=== PATIENT | female | born 1935 | race Caucasian/White ===

== ENCOUNTER → 2016-06-20 | Outpatient (CLI) | payer MEDICARE ==
[~2016-06-20] MED LIST: /WARF25TA OR; ASPIRIN PO; BONIVA PO; CALCTAB93 PO; COQ10 PO; GLAUCOMA EYE DROP OU; GLUCOSAMINE PO; LISIPOW PO; METOPROLOL PO; MILKSUS OR; MULTLIQ7 PO; PERC5TAB8 OR; PRIN5TAB OR; SENO8.6T5 OR; SIMVPOW2 PO; [UNRECOGNIZED DRUG - OTHER] OU
[2016-06-20 19:31] LABS: FREE T4 1.05 NG/DL (0.76-1.46)
== END ==
LOC: M LRY 11:57
PROVIDERS: ATTEND Nurse Practitioner Family
DX: R81 Glycosuria (principal); Z79.899 Other long term (current) drug therapy; I10 Essential (primary) hypertension

== ENCOUNTER → 2016-10-16 | Outpatient (CLI) | payer MEDICARE ==
[2016-10-16 17:24] LABS: ALBUMIN 3.5 GM/DL (3.2-5.2); ALKALINE PHOSPHATASE 81 U/L (45-117); ALT/SGPT 20 U/L (12-78); ANION GAP 5 MEQ/L (8-16); AST/SGOT 19 U/L (15-37); BILIRUBIN,TOTAL 0.4 MG/DL (0.2-1.0); BLOOD UREA NITROGEN 24 MG/DL (7-18); CALCIUM LEVEL 8.8 MG/DL (8.8-10.2); CARBON DIOXIDE LEVEL 30 MEQ/L (21-32); CHLORIDE LEVEL 109 MEQ/L (98-107); CHOLESTEROL LEVEL 163 MG/DL (<200); CREATININE FOR GFR 0.77 MG/DL (0.55-1.02); GLOMERULAR FILTRATION RATE > 60.0 (>32); GLUCOSE, FASTING 109 MG/DL (83-110); POTASSIUM SERUM 4.3 MEQ/L (3.5-5.1); SODIUM LEVEL 144 MEQ/L (136-145); TOTAL PROTEIN 6.2 GM/DL (6.4-8.2); TRIGLYCERIDES LEVEL 70 MG/DL (<150)
== END ==
LOC: M LRY 10:51
PROVIDERS: ATTEND Nurse Practitioner Family
DX: E78.4 Other hyperlipidemia (principal); I10 Essential (primary) hypertension

== ENCOUNTER → 2016-11-05 | Day surgery (SDC) | payer MEDICARE ==
[~2016-11-05] VITALS: Ht 165.1 cm; Wt 57.2 kg
[~2016-11-05] MED LIST changes: +ACETAMINOPHEN 325 MG TAB PO PRN; +ACETYLCHOLINE OPHTH SOLN 1% 2ML (MIOCHOL-E) As Ordered ONE; +ASPI1TAB PO; +AcetaZOLAMIDE 500 MG ER CAP PO ONE; +BSS with VANC/TOB/EPI for EYE CASES IR ONE; +CALC500T49 PO; +CEFUROXIME 1MG/0.1ML INTRACAMERAL INJ As Ordered ONE; +CYCLOPENTOLATE 2% OPHTH SOLN 2ML BTL OD ONE; +HEALON DUET (HEALON 10MG/ML 0.55ML & HEALON ENDOCOAT 30MG/ML 0.85ML) As Ordered ONE; +KETOROLAC 0.5% OPHTH SOLN OD ONE; +LIDOCAINE 1% SDV 5 ML VIAL As Ordered ONE; +LIDOCAINE 4% INJ 5 ML AMP OU ONE; +LISI-542 PO; +LR 500 ML IV SCH; +METO-346 PO; +MIDAZOLAM INJ 2 MG/2 ML VIAL (J2250) As Ordered ONE; +MULT1TAB10 PO; +OFLOXACIN 0.3 % (OCUFLOX) OPTH SOL 5ML OD ONE; +PHENYLEPHRINE 2.5% OPHTH SOL 2ML OD ONE; +POVIDONE-IODINE 5% OPHTH PREP SOL 30ML As Ordered ONE; +PROPARACAINE 0.5% OPHTH SOL 15ML OD PRN; +SIMV20TA2 PO; +TRIMETHOBENZAMIDE 300 MG CAP PO PRN; +TROPICAMIDE 1% OPHTH SOLN 2ML OD ONE; +fentaNYL 100 MCG/2 ML INJECTION (J3010) As Ordered ONE
[2016-11-05 11:20] VITALS: BP 162/90
--- NOTE | 2016-11-06 13:35 | RO ---
DATE OF PROCEDURE: 11/05/2016 PREPROCEDURE DIAGNOSIS: Cataract right eye and glaucoma right eye. POSTPROCEDURE DIAGNOSIS: Glaucoma and cataract right eye. PROCEDURE: Phacoemulsification with intraocular lens implantation of PCB00 power 26 diopter and endocyclophotocoagulation right eye and also placement of the Glaukos iStent. SURGEON: Megan Walsh MD [employer]IATION TACTICAL READINESS OFFICER: None. ANESTHESIA: COMPLICATIONS: None. DESCRIPTION OF PROCEDURE: The patient was first brought to the operating room and laid in supine position. The right eye was prepped and draped in a sterile fashion for opthalmic surgery and a lid speculum was placed. Side port incision was made and EndoCoat was injected into the anterior chamber. Temporal clear corneal incision was then made with a 2.5 mm Keratome followed by capsulorrhexis and hydrodissection. Phacoemulsification was then carried out in divide and conquer method followed by aspiration of the cortex with the irrigation and aspiration cannula. Healon was then placed into the capsular bag and intraocular lens inserted. Healon was then placed in the ciliary sulcus and under the guidance of the TV monitor with the help of the EndoProbe, endocyclophotocoagulation was done at over 280 degrees at 0.20 mV. Good results were noted by shrinking of the ciliary processes. After this, Healon was then placed into the anterior chamber to visualize the inferonasal trabecular mesh work and with the patient's head turned away and under high mag with the help of the Gonio lens, iStent was placed in the inferonasal quadrant. It was very hard for the patient to hold still so we had to attempt a second iStent after the first one was noted to be loose. Excess viscoelastic was then aspirated. Wound was hydrated. Lid speculum removed and patient returned to recovery room in stable condition.
== END | disposition home or self-care (01) ==
LOC: M SDC 07:51
PROVIDERS: ATTEND Ophthalmology
DX: H25.9 Unspecified age-related cataract (principal); H40.9 Unspecified glaucoma; I25.10 Atherosclerotic heart disease of native coronary artery without angina pectoris; I25.2 Old myocardial infarction; I10 Essential (primary) hypertension; E78.4 Other hyperlipidemia; M19.90 Unspecified osteoarthritis, unspecified site; R06.83 Snoring; M81.0 Age-related osteoporosis without current pathological fracture; Z95.5 Presence of coronary angioplasty implant and graft; Z79.899 Other long term (current) drug therapy; Z79.82 Long term (current) use of aspirin
CPT/HCPCS: 66183; 66711; 66984; C1783; J2250; J3010; V2632

== ENCOUNTER → 2016-12-05 | Outpatient (REF) | payer MEDICARE ==
[~2016-12-05] MED LIST changes: -ACETAMINOPHEN 325 MG TAB PO PRN; -ACETYLCHOLINE OPHTH SOLN 1% 2ML (MIOCHOL-E) As Ordered ONE; -AcetaZOLAMIDE 500 MG ER CAP PO ONE; -BSS with VANC/TOB/EPI for EYE CASES IR ONE; -CEFUROXIME 1MG/0.1ML INTRACAMERAL INJ As Ordered ONE; +CHEW500C2 PO; +CO Q100C PO; -CYCLOPENTOLATE 2% OPHTH SOLN 2ML BTL OD ONE; -HEALON DUET (HEALON 10MG/ML 0.55ML & HEALON ENDOCOAT 30MG/ML 0.85ML) As Ordered ONE; -KETOROLAC 0.5% OPHTH SOLN OD ONE; -LIDOCAINE 1% SDV 5 ML VIAL As Ordered ONE; -LIDOCAINE 4% INJ 5 ML AMP OU ONE; +LOVE1INJ SC; -LR 500 ML IV SCH; +METO25TA4 PO; -MIDAZOLAM INJ 2 MG/2 ML VIAL (J2250) As Ordered ONE; +MILKSUS PO; -OFLOXACIN 0.3 % (OCUFLOX) OPTH SOL 5ML OD ONE; +PEG1POW PO; +PERC5TAB12 PO; -PHENYLEPHRINE 2.5% OPHTH SOL 2ML OD ONE; -POVIDONE-IODINE 5% OPHTH PREP SOL 30ML As Ordered ONE; -PROPARACAINE 0.5% OPHTH SOL 15ML OD PRN; +SENO8.6T10 PO; +SIMB1SUS OU; +TIMO0.5S29 OU; +TRAV04OPD OU; -TRIMETHOBENZAMIDE 300 MG CAP PO PRN; -TROPICAMIDE 1% OPHTH SOLN 2ML OD ONE; +VITACHTA PO; -fentaNYL 100 MCG/2 ML INJECTION (J3010) As Ordered ONE
[2016-12-05 19:45] LABS: BASO % 0.6 % (0.0-1.0); EOS # 0.1 K/mm3 (0.0-0.50); EOS % 2.3 % (0.0-3.0); LARGE UNSTAINED CELL # 0.1 K/mm3 (0.0-0.4); LARGE UNSTAINED CELL % 1.7 % (0.0-4.0); LYMPH # 1.5 K/mm3 (1.5-4.5); LYMPH % 22.2 % (24.0-44.0); MEAN CORPUSCULAR HEMOGLOBIN 30.2 pg (27.0-33.0); MEAN CORPUSCULAR VOLUME 91.3 fl (80.0-96.0); MONO # 0.4 K/mm3 (0.0-0.8); MONO % 5.8 % (0.0-5.0); NEUTROPHILS # 4.2 K/mm3 (1.8-7.7); NEUTROPHILS % 67.4 % (36.0-66.0); PLATELET COUNT, AUTOMATED 241 k/mm3 (150-450); RED CELL DISTRIBUTION WIDTH 13.1 % (11.5-14.5); WHITE BLOOD COUNT 6.2 K/mm3 (4.0-10.0)
[2016-12-05 20:52] LABS: ERYTHROCYTE SEDIMENTATION RATE 11 mm/hr (0-30)
== END ==
LOC: M SFHCLERA 14:50
PROVIDERS: ATTEND Family Medicine
DX: R63.4 Abnormal weight loss (principal)

== ENCOUNTER → 2016-12-05 | Outpatient (CLI) | payer MEDICARE ==
--- NOTE | 2016-12-05 15:41 | REP ---
PA and lateral chest: Comparisons are 03/14/2012 and 09/02/2011. There are are no masses or nodules. There are no infiltrates or effusions. Lung esteves are clear. Cardiac size is normal. There is demineralization. There is thoracic scoliosis convex right at the thoracolumbar junction. This is unchanged. No lytic, blastic or destructive skeletal changes are identified. The sharad and mediastinum are unremarkable. Impression: No change from the prior studies. There are no masses or nodules. No infiltrates or effusions. Demineralization and scoliosis are again identified. Signed by Hai Sood MD 12/05/2016 03:33 P
== END ==
LOC: M LRY 15:15
PROVIDERS: ATTEND Family Medicine
DX: M85.80 Other specified disorders of bone density and structure, unspecified site (principal); M41.24 Other idiopathic scoliosis, thoracic region; R63.4 Abnormal weight loss
CPT/HCPCS: 71020; 84443; 85025; 85652; 86140; G0463

== ENCOUNTER → 2016-12-07 | Outpatient (REF) | payer MEDICARE | LOC: M SFHCLERA 17:49 | PROVIDERS: ATTEND Family Medicine | DX: R63.4 Abnormal weight loss (principal); Z79.899 Other long term (current) drug therapy; R13.0 Aphagia ==

== ENCOUNTER → 2016-12-11 | Outpatient (CLI) | payer MEDICARE ==
[~2016-12-11] MED LIST changes: +E-Z-PAQUE 96% w/w SUSP 176GM BTL As Ordered ONE; +VARIBAR NECTAR 40% w/v 240ML SUSP BTL As Ordered ONE; +VARIBAR PUDDING 40% w/v 230ML TUBE As Ordered ONE
--- NOTE | 2016-12-11 14:55 | REP ---
COOKIE SWALLOW: The procedure was performed under the direct supervision of Dr. Stephenson. The procedure was performed with Mckenzie Mayorga from speech pathology present. 5 mL aliquots of thin and solid-consistency barium was administered. With thin-consistency barium, there is penetration. A detailed report of this examination will be provided by speech pathology. 1 minute and 50 seconds of fluoroscopy time was utilized for this procedure. Reviewed by GRADY Mota 12/11/2016 04:06 PEdited and Signed by Hai Stephenson MD 12/11/2016 05:42 P
== END ==
LOC: M ST 10:02
PROVIDERS: ATTEND Family Medicine
DX: R13.10 Dysphagia, unspecified (principal)
CPT/HCPCS: 74230; 92611; G8996; G8997

== ENCOUNTER 2017-01-05 19:09 | Inpatient (IN) | payer MEDICARE ==
[~2017-01-05] VITALS: Ht 162.6 cm; Wt 58.4 kg
[~2017-01-05 19:09] MED LIST changes: -CHEW500C2 PO; -CO Q100C PO; -LOVE1INJ SC; -METO25TA4 PO; -MILKSUS PO; -PEG1POW PO; -PERC5TAB12 PO; -SENO8.6T10 PO; -SIMB1SUS OU; -TIMO0.5S29 OU; -TRAV04OPD OU; -VITACHTA PO
[2017-01-05 19:53] LABS: BASO # 0.1 K/mm3 (0.0-0.2); BASO % 0.4 % (0.0-1.0); EOS # 0.1 K/mm3 (0.0-0.50); EOS % 0.8 % (0.0-3.0); LARGE UNSTAINED CELL # 0.1 K/mm3 (0.0-0.4); LARGE UNSTAINED CELL % 0.6 % (0.0-4.0); LYMPH # 0.9 K/mm3 (1.5-4.5); LYMPH % 6.5 % (24.0-44.0); MEAN CORPUSCULAR HEMOGLOBIN 29.8 pg (27.0-33.0); MEAN CORPUSCULAR HGB CONC 32.5 g/dl (32.0-36.5); MEAN CORPUSCULAR VOLUME 91.6 fl (80.0-96.0); MONO # 0.5 K/mm3 (0.0-0.8); MONO % 4.3 % (0.0-5.0); NEUTROPHILS # 11.2 K/mm3 (1.8-7.7); NEUTROPHILS % 87.5 % (36.0-66.0); PLATELET COUNT, AUTOMATED 183 k/mm3 (150-450); RED CELL DISTRIBUTION WIDTH 13.2 % (11.5-14.5); WHITE BLOOD COUNT 12.8 K/mm3 (4.0-10.0)
[2017-01-05 19:56] LABS: INR 0.99
[2017-01-05 20:22] LABS: ANION GAP 7 MEQ/L (8-16); BLOOD UREA NITROGEN 31 MG/DL (7-18); CALCIUM LEVEL 9.5 MG/DL (8.8-10.2); CARBON DIOXIDE LEVEL 27 MEQ/L (21-32); CHLORIDE LEVEL 110 MEQ/L (98-107); CREATININE FOR GFR 0.68 MG/DL (0.55-1.02); GLOMERULAR FILTRATION RATE > 60.0 (>32); GLUCOSE, FASTING 123 MG/DL (83-110); POTASSIUM SERUM 3.9 MEQ/L (3.5-5.1); SODIUM LEVEL 144 MEQ/L (136-145)
[2017-01-05] MEDS ORDERED: ONDANSETRON 4MG/2ML VIAL (J2405) IV ONE (20:30)
[2017-01-05] MEDS ORDERED: fentaNYL 100 MCG/2 ML INJECTION (J3010) IV ONE ×2 (20:30→21:15)
[2017-01-05] MEDS ORDERED: TIMO0.5S29 OU (21:06)
[2017-01-05] MEDS ORDERED: METO25TA4 PO (21:06)
[2017-01-05] MEDS ORDERED: CO Q100C PO (21:06)
[2017-01-05] MEDS ORDERED: TRAV04OPD OU (21:06)
[2017-01-05] MEDS ORDERED: SIMB1SUS OU (21:06)
[2017-01-05] MEDS ORDERED: CHEW500C2 PO (21:06)
[2017-01-05] MEDS ORDERED: VITACHTA PO (21:06)
[2017-01-05] MEDS ORDERED: ACETAMINOPHEN TAB 650MG DOSE (2X325MG) PO PRN (21:45)
--- NOTE | 2017-01-05 22:39 | HPE ---
DATE OF ADMISSION: 01/05/2017 Most of the history is obtained from the patient who is a good historian. CHIEF COMPLAINT: Mechanical fall and hip pain. HISTORY OF PRESENT ILLNESS: This is an 81-year-old female who states that apparently today at 2:30 p.m. she slipped while trying to hold onto a railing. The patient, after the fall, had significant pain in her hip, therefore came to the emergency room for further evaluation. The patient denies any loss of consciousness prior to the fall, denies any fainting, does remember the entire event, denies any chest pain, shortness of breath, or palpitations prior to the fall. She has never had any previous syncope in the past. The patient, upon arrival, was diagnosed with a hip fracture. The patient states she does have a history of coronary artery disease, last stenting done in 2011, this was after a myocardial infarction. The patient has two stents overall, is currently only on a baby aspirin, she denies any history of recent chest pain or dyspnea on exertion. The patient states she dances regularly without any difficulty. There is no previous history of congestive heart failure as far as her family knows as well. There is no previous history of arrhythmias. The patient's last surgery was in 2011 with general anesthesia. The patient denies any excessive bleeding at that time and did not have any complications from the anesthesia and did not require a prolonged intubation at that time. The patient does have a history of atrial fibrillation, she is status post ablation in the past, and prior to that was cardioverted multiple times. She is currently not on any anticoagulation for that. The patient denies any previous history of diabetes or kidney disease of any kind or any previous strokes. PAST MEDICAL HISTORY: Significant for coronary artery disease status post myocardial infarction (MA) and stenting times two, atrial fibrillation status post cardioversion and now ablation, currently not on any anticoagulation, hypertension, glaucoma, osteoarthritis. CURRENT MEDICATIONS: Include: - aspirin 81 mg daily - metoprolol 25 mg twice a day - lisinopril 5 mg daily - calcium carbonate 500 mg daily - multivitamin two tablets daily - simvastatin 20 mg nightly - coenzyme Q10 100 mg tablet daily - Simbrinza eye drops twice a day - Timolol eye drops 0.5% twice a day - Travatan eye drops nightly to both eyes ALLERGIES: No known drug allergies. SOCIAL HISTORY: The patient denies any previous history of tobacco, alcohol, or drug use. Currently retired. FAMILY HISTORY: Noncontributory for any coronary artery disease or diabetes. PREVIOUS SURGERIES: Include a total hysterectomy, bilateral total knee replacement, appendectomy, gallbladder resection, a breast biopsy in the past, and cataract surgery. REVIEW OF SYSTEMS: Other than the above mentioned, denies any other constitutional symptoms or any cardiac, pulmonary, digestive, endocrine, hematological, psychiatric, neurological, musculoskeletal, or dermatological disease. PHYSICAL EXAMINATION: Pulse is 71, blood pressure of 160/94, breathing at 28, afebrile. GENERAL APPEARANCE: 81-year-old, thin, white female, currently laying in bed in no apparent distress. PSYCHIATRIC EXAM: Alert and oriented times three with normal affect, pleasant. SKIN EXAM: Intact, warm, no obvious rashes noted. EYE EXAM: Pupils are equally round and reactive to light without icterus. OROPHARYNGEAL EXAM: No pharyngeal erythema, dentition in good condition. NECK EXAM: No thyromegaly, trachea midline, neck is supple. LYMPHATICS EXAM: No cervical or axillary lymphadenopathy. CARDIAC EXAM: Regular rate and rhythm. No rubs, murmurs or gallops. No jugular venous distention (JVD). No edema. RESPIRATORY EXAM: Clear to auscultation bilaterally with good effort. ABDOMINAL EXAM: Nondistended, nontender. No masses palpated. PERIPHERAL EXAM: No clubbing, cyanosis, or edema noted. LABORATORY DATA: The patient's white cell count is 12,000, hematocrit of 43, platelet count of 183, with an MCV of 91, RDW of 13. Chemistry is essentially normal except for an elevated BUN and creatinine of 31/0.68, with a calcium of 9.5. Coagulation profile is normal. The patient underwent a pelvic x-ray, which is personally reviewed as well, and shows a hip fracture. The patient has a chest x-ray as well, which is also personally reviewed, and shows no obvious effusions or infiltrates and slight hyperinflation. EKG is personally reviewed as well and shows normal sinus, normal axis, with left ventricular hypertrophy and no ST changes. ASSESSMENT: This is an 81-year-old female now presenting with hip fracture status post a mechanical fall. The patient is scheduled to probably undergo surgery in the morning. Anesthesia has requested cardiac evaluation prior to surgery. 1. Hip fracture: Will admit the patient to the medical/surgical unit at this time, the patient will be nothing by mouth after midnight, orthopedic consult has been obtained, complete blood count (CBC) and basic metabolic panel (BMP) will be ordered for the morning. a. Cardiac risk: The patient is moderate risk for a moderate risk procedure, at this time would recommend continuing metoprolol and holding aspirin, proceed as planned, cardiology evaluation in the morning. b. Pulmonary risk: The patient's pulmonary risk status at this time is low, would recommend incentive spirometry after surgery. c. DVT (deep venous thrombosis) risk: Proceed as per orthopedics. 2. Hypertension: At this time, will continue with metoprolol only, reinstitute other medications after surgery. 3. Previous atrial fibrillation: The patient has undergone ablation in the past and apparently has not had any issues. Will continue to monitor for atrial fibrillation. For deep venous thrombosis (DVT) prophylaxis, the patient will be on sequential compression device secondary to probable procedure in the morning and diet will be a cardiac diet at this time and then nothing by mouth after midnight.
[2017-01-06] VITALS (8 sets, daily range): BP systolic 102–156; BP diastolic 52–83
[2017-01-06] MEDS: PERCOCET 5MG/325MG TAB PO PRN ×4 (00:51→21:58)
[2017-01-06] MEDS: NS 1,000 ML IV SCH ×2 (00:52→08:26)
--- NOTE | 2017-01-06 07:31 | ECGEPIP ---
Stationary ECG Study [facility] - ED Test Date: 2017-01-05 Pat Name: RYLEE VICKERS Department: Room: [place] [address] Gender: F Obiee Lead Developer: sherly : 1935 Requested By: GIBRAN RAMIREZ Order Number: [id number] Reading MD: Humberto Richter Measurements Intervals [place] Rate: 85 P: 50 OR: 162 QRS: 44 QRSD: 110 T: 17 QT: 366 QTc: 437 Interpretive Statements SINUS RHYTHM MODERATE VOLTAGE CRITERIA FOR LVH, CONSIDER NORMAL VARIANT Electronically Signed On 01-06-2017 7:31:05 EDT by Humberto Richter
[2017-01-06 07:36] LABS: BASO % 0.6 % (0.0-1.0); EOS # 0.1 K/mm3 (0.0-0.50); EOS % 2.4 % (0.0-3.0); LARGE UNSTAINED CELL # 0.1 K/mm3 (0.0-0.4); LARGE UNSTAINED CELL % 1.9 % (0.0-4.0); LYMPH # 1.1 K/mm3 (1.5-4.5); LYMPH % 18.8 % (24.0-44.0); MEAN CORPUSCULAR HEMOGLOBIN 30.3 pg (27.0-33.0); MEAN CORPUSCULAR HGB CONC 33.3 g/dl (32.0-36.5); MEAN CORPUSCULAR VOLUME 91.2 fl (80.0-96.0); MONO # 0.4 K/mm3 (0.0-0.8); MONO % 6.8 % (0.0-5.0); NEUTROPHILS % 69.6 % (36.0-66.0); PLATELET COUNT, AUTOMATED 160 k/mm3 (150-450); WHITE BLOOD COUNT 5.8 K/mm3 (4.0-10.0)
[2017-01-06 07:42] LABS: INR 1.1
[2017-01-06 08:11] LABS: ALBUMIN 3.1 GM/DL (3.2-5.2); ALBUMIN/GLOBULIN RATIO 1.15 (1.00-1.93); ALKALINE PHOSPHATASE 67 U/L (45-117); ALT/SGPT 19 U/L (12-78); ANION GAP 6 MEQ/L (8-16); AST/SGOT 23 U/L (15-37); BILIRUBIN,TOTAL 0.6 MG/DL (0.2-1.0); BLOOD UREA NITROGEN 28 MG/DL (7-18); CALCIUM LEVEL 8.5 MG/DL (8.8-10.2); CARBON DIOXIDE LEVEL 29 MEQ/L (21-32); CHLORIDE LEVEL 110 MEQ/L (98-107); CREATININE FOR GFR 0.72 MG/DL (0.55-1.02); GLOMERULAR FILTRATION RATE > 60.0 (>32); GLUCOSE, FASTING 89 MG/DL (83-110); POTASSIUM SERUM 4.2 MEQ/L (3.5-5.1); SODIUM LEVEL 145 MEQ/L (136-145); TOTAL PROTEIN 5.8 GM/DL (6.4-8.2)
--- NOTE | 2017-01-06 08:26 | CR ---
DATE OF CONSULTATION: 01/05/2017 REASON FOR CONSULTATION: Left femoral neck fracture. CONSULTING PHYSICIAN: Dr. Alexis Rand PRIMARY CARE PHYSICIAN: Dr. Catherine HISTORY OF PRESENT ILLNESS: Priscilla Wilhelm is an 81-year-old female, community ambulator with no assistive devices sustained a mechanical fall from standing height resulting in a left valgus impacted femoral neck fracture. She presented initially to [facility] and then transferred to [facility] for definitive evaluation. Patient denied any chest pain, shortness of breath or lightheadedness prior to her fall and has no other complaints. She localizes pain to the left hip. PAST MEDICAL HISTORY: Significant for myocardial infarction in 2011, where she received two cardiac stents. She was on Plavix for 1 year afterwards. She has been off Plavix for 4 years. She also has hypertension and hypercholesterolemia. MEDICATIONS: - metoprolol - simvastatin - baby aspirin - CoQ10 - vitamin B supplementation - multivitamin - calcium supplementation - Zoloft PAST SURGICAL HISTORY: 1. Bilateral total knee arthroplasty. 2. Cataract surgery. 3. Appendectomy. 4. Cholecystectomy. FAMILY HISTORY: Noncontributory. SOCIAL HISTORY: The patient lives alone, independently. She does not smoke and never has. She drink socially. Does not use illicit drugs. REVIEW OF SYSTEMS: 14-point review of systems was reviewed and was unremarkable. PHYSICAL EXAMINATION: Vital signs are reviewed and stable. General: This is a well-nourished female who appears her stated age, in no acute distress. Neurologic: She is awake, alert and oriented to person, place and time. She has intact sensory and motor function in her left lower extremity, femoral, tibial, sural, saphenous, superficial peroneal and deep peroneal nerve distributions. Cardiovascular: She has 2+ dorsalis pedis (DP) and posterior tibial (PT) pulses and brisk capillary refill of all digits of the her left lower extremity. Skin: There are no open wounds or abrasions with the left hip. Musculoskeletal: Focused physical exam on the left hip demonstrates mild tenderness throughout the lateral aspect of her hip. She has no tenderness about the contralateral hip or midline tenderness of the spine. She denies any neck pain. She has 5/5 motor strength in all left lower extremity distributions. RADIOGRAPHS: Plain radiographs of the left hip demonstrate a minimally displaced valgus impacted left femoral neck fracture. ASSESSMENT: This is an 81-year-old female with valgus impacted left femoral neck fracture. PLAN: I discussed with the patient the risks, benefits, indications and alternatives of operative versus nonoperative treatment for her left femoral neck fracture. I also discussed her case with the hospitalist and anesthesiologist, Dr. Melendez. Given her cardiac history and lack of recent followup with her parachute folder, we determined that it would be appropriate to obtain inpatient cardiology evaluation prior to being cleared for surgery. Once she has been evaluated by a parachute folder, she will proceed with left hip percutaneous screw fixation. Informed consent was obtained from the patient and all her questions were answered. SETH
[2017-01-06] MEDS ORDERED: TIMOLOL MALEATE 0.5% OPHTH SOLN 5 ML OU SCH (09:00)
--- NOTE | 2017-01-06 09:12 | REP ---
Pelvis: Single view. History: Evaluate for hip pain. Findings: AP view of the pelvis shows an intact bony pelvic ring. The left lateral tip of the iliac crest is excluded from the field of view. No sacral fracture is seen. At the edge of the field of view there appears to be a subcapital fracture of the left hip. Impression: No pelvic fracture noted. Subcapital fracture left hip. Signed by Byron Boyle MD 01/06/2017 09:55 A
--- NOTE | 2017-01-06 10:38 | CR.PDOC ---
[facility] Consultation Consultation DATE OF CONSULTATION: Jan 05, 2017 at 19:09 Cardiac Consultation PRIMARY CARE PROVIDER: Alba Harris Hospitalist: Dr. Moy Consulting Physician: Dr. Alexis Rand Orthopedic Surgeon: Dr. V[employer] Technician: Dr. 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 Per patient, she has been having worsening glaucoma recently. She was trying to reach for door handle. However, the door handle was not where she thought it was. Therefore, she fell on her left side, and hit her head on the left side and also her left elbow as well as left hip. She denies feeling weak, dizzy before the fall. She denies loss of consciousness after the fall. She also denies any recent chest pain, shortness breath, dizziness. However, she does admit to not functioning to the level where she was 1 year ago. Per patient, she was able to mow the lawn a year ago. However, she no longer able to do so. She does attend dancing event twice weekly about 3 hours each time. She can walk at least 1 block. Otherwise, patient denies any fever or chills, any chest pain, trouble breathing, abdominal pains, nausea, vomiting, diarrhea, constipation, any problem with urination. ALLERGIES: Please see below. Home Medications: Please see below. PAST MEDICAL HISTORY: 1. CAD s/p MA and stents x2 . 2. A-V nataly reentrant tachycarida s/p ablation. 3. HTN . 4. Glaucoma. 5. Osteoarthritis 6. Strong family history for familial adenomatous polyposis PAST SURGICAL HISTORY: 1. 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 Birmingham 2. PCI 01/20/2012, LAD stent proximal to mid vessel, severe stenosis distal to stent 90%, moderate lesion in mid LAD 50%, distal LAD has mild stenosis. RCA dominant, normal. 55% EF. Then the lesion was stented at LAD with 2.25 x 12 mm PROMOUS stent. 3. Bilateral total knee arthroplasty. 4. Cataract surgery. 5. Apendectomy. 6. Cholecystectomy. 7. Total hysterectomy 8. Breast biopsy. 9. 3 colonoscopies in the past, the last one in 2010 and was normal. SOCIAL HISTORY: Patient lives alone, does not smoke, drink or use any drugs. Patient does most of her activity of daily living by herself. FAMILY HISTORY: Patients mother and a sibling from familial adenomatous polyposis. Patients father from heart attack in the 70s. REVIEW OF SYSTEMS: CONSTITUTIONAL: Denies fever/chill, weight loss, recent traveling, sick contact. HEENT: Denies smell, hearing, taste, trouble swallowing. Admits to worsening condition. Admits to intermittent slurred speech for 1 year. Per patient, she believes it was due to dry mouth. CARDIOVASCULAR: Denies chest pain, SOB, palpitation, orthopnea. Sleep with 1 pillow at night on flat bed. RESPIRATORY: Denies SOB, wheezing, cough, sputum production, blood in sputum. GASTROINTESTINAL: Denies abdominal pain, nausea, vomiting, diarrhea, constipation, blood in stool. GENITOURINARY: Denies urinary urgency, incontinence, burning on urination, blood in urine. SKIN: Denies rash, ulceration, lumps or bumps, discoloration on skin. MUSCULOSKELETAL: Admits to joint pain. ENDOCRINE: Denies any polydipsia, plyurea, heat or cold intolerance. HEMATOLOGIC/LYMPHATIC: Denies ease of bruising, bleeding anywhere, night sweats. NEUROLOGICAL: Denies weakness on one side of body, any change of sensations. PSYCHIATRIC: Denies depression, anxiety, suicidal and homicidal ideations. PHYSICAL EXAMINATION: VITAL SIGNS: Temperature 97.8, pulse 71, respiration 14, blood pressure 125/83, oxygen saturation 97% on room air. GENERAL APPEARANCE: Thin looking f looks appropriate to age. NAD, AAOx3, laying comfortably in bed. Has slurred speech. HEENT: NCAT, EOMI, MM, Neck supple, no neck lymphadenopathy. CARDIOVASCULAR: RRR, normal S1, S2, no M/R/G. LUNGS: CTAB, no W/R/R. ABDOMEN: +BS, Soft, None tender, None distended, No peritoneal signs, No palpable mass, No ecchymosis. MUSCULOSKELETAL: Upper extremity muscle strength was 5 over 5 bilaterally. EXTREMITIES: No Edema/Clubbing/Cyanosis. Left hip was tender to palpation. Left upper arm has bruising. NEUROLOGICAL: CN 2 through 12 intact, no focal neurological deficit. PSYCHIATRIC: Normal affect. LABORATORY DATA: See below. Most significant: Hemoglobin 12.3. INR 1.1. Potassium 4.2. IMAGING: On 01/05/2017, patient had a normal portable chest and pelvis x-ray shows a left femoral neck fracture. EK01/05/17 shows SR with VR 85. ASSESSMENT/ Plan: 81 years old female with past medical history of coronary artery disease s/p MA and stents, AV node reentrant tachycardia, presented with Valgus impacted left femoral neck fracture. We have been consulted for cardiac optimization due to patient's cardiac history. - Echo from 05/17/08 shows LVEF 65%, left atrium upper limits of normal with Doppler evidence of an impairment of LV relaxation but no secondary pulmonary hypertension. Aortic valvular sclerosis and subtle mitral annular thickening without functional valvular abnormality. - PCI 01/20/2012, LAD stent proximal to mid vessel, severe stenosis distal to stent 90%, moderate lesion in mid LAD 50%, distal LAD has mild stenosis. RCA dominant, normal. 55% EF. Then the lesion was stented at LAD with 2.25 x 12 mm PROMOUS stent. 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 Birmingham Patient has been optimized from cardiac stand of point for a patient who is moderate risk for an intermediate risk procedure. Resume home medications after procedure. Please feel free to contact us for any questions. DVT prophylaxis: SCD and TEDs Fluid, electrolytes, nutrition: NS 100 ml/h, keep K at 4, NPO for OR Thank you for your consultation! Vital Signs/I&O Vital Signs Date Time Temp Pulse Resp B/P (MAP) Pulse Ox O2 Delivery O2 Flow Rate FiO2 01/06/17 08:48 Room Air 01/06/17 08:28 18 01/06/17 06:00 97.8 71 125/83 (97) 97 I&O- Last 24 Hours up to 6 AM 01/06/17 05:59 Intake Total 0 ml Output Total 0 ml Balance 0 ml Laboratory Data Labs 24H Laboratory Tests 2 01/05/17 19:38: White Blood Count 12.8H, Red Blood Count 4.73, Hemoglobin 14.1, Hematocrit 43.3 , Mean Corpuscular Volume 91.6, Mean Corpuscular Hemoglobin 29.8, Mean Corpuscular Hemoglobin Concent 32.5, Red Cell Distribution Width 13.2, Platelet Count 183, Neutrophils (%) (Auto) 87.5H, Lymphocytes (%) (Auto) 6.5L, Monocytes (%) (Auto) 4.3, Eosinophils (%) (Auto) 0.8, Basophils (%) (Auto) 0.4, Neutrophils # (Auto) 11.2H, Lymphocytes # (Auto) 0.9L, Monocytes # (Auto) 0.5, Eosinophils # (Auto) 0.1, Basophils # (Auto) 0.1, Large Unclassified Cells % 0.6 , Large Unclassified Cells # 0.1, Prothrombin Time 13.2, Prothromb Time International Ratio 0.99, Activated Partial Thromboplast Time 30.6, Anion Gap 7L , Glomerular Filtration Rate > 60.0, Blood Urea Nitrogen 31H, Creatinine 0.68, Sodium Level 144, Potassium Level 3.9, Chloride Level 110H, Carbon Dioxide Level 27, Calcium Level 9.5 01/06/17 07:02: White Blood Count 5.8, Red Blood Count 4.04, Hemoglobin 12.3, Hematocrit 36.9, Mean Corpuscular Volume 91.2, Mean Corpuscular Hemoglobin 30.3, Mean Corpuscular Hemoglobin Concent 33.3, Red Cell Distribution Width 13.0, Platelet Count 160, Neutrophils (%) (Auto) 69.6H, Lymphocytes (%) (Auto) 18.8L, Monocytes (%) (Auto) 6.8H, Eosinophils (%) (Auto) 2.4, Basophils (%) (Auto) 0.6 , Neutrophils # (Auto) 4.0, Lymphocytes # (Auto) 1.1L, Monocytes # (Auto) 0.4, Eosinophils # (Auto) 0.1, Basophils # (Auto) 0.0, Large Unclassified Cells % 1.9 , Large Unclassified Cells # 0.1, Prothrombin Time 14.4, Prothromb Time International Ratio 1.10, Anion Gap 6L, Glomerular Filtration Rate > 60.0, Blood Urea Nitrogen 28H, Creatinine 0.72, Sodium Level 145, Potassium Level 4.2 , Chloride Level 110H, Carbon Dioxide Level 29, Calcium Level 8.5L, Aspartate Amino Transf (AST/SGOT) 23, Alanine Aminotransferase (ALT/SGPT) 19, Alkaline Phosphatase 67, Total Bilirubin 0.6, Total Protein 5.8L, Albumin 3.1L, Albumin/ Globulin Ratio 1.15 CBC/BMP Laboratory Tests 01/05/17 19:38 Red Blood Count 4.73, Mean Corpuscular Volume 91.6, Mean Corpuscular Hemoglobin 29.8, Mean Corpuscular Hemoglobin Concent 32.5, Red Cell Distribution Width 13.2 , Neutrophils (%) (Auto) 87.5 H, Lymphocytes (%) (Auto) 6.5 L, Monocytes (%) ( Auto) 4.3, Eosinophils (%) (Auto) 0.8, Basophils (%) (Auto) 0.4, Neutrophils # ( Auto) 11.2 H, Lymphocytes # (Auto) 0.9 L, Monocytes # (Auto) 0.5, Eosinophils # (Auto) 0.1, Basophils # (Auto) 0.1, Calcium Level 9.5 01/06/17 07:02 Red Blood Count 4.04, Mean Corpuscular Volume 91.2, Mean Corpuscular Hemoglobin 30.3, Mean Corpuscular Hemoglobin Concent 33.3, Red Cell Distribution Width 13.0 , Neutrophils (%) (Auto) 69.6 H, Lymphocytes (%) (Auto) 18.8 L, Monocytes (%) ( Auto) 6.8 H, Eosinophils (%) (Auto) 2.4, Basophils (%) (Auto) 0.6, Neutrophils # (Auto) 4.0, Lymphocytes # (Auto) 1.1 L, Monocytes # (Auto) 0.4, Eosinophils # (Auto) 0.1, Basophils # (Auto) 0.0, Calcium Level 8.5 L, Aspartate Amino Transf (AST/SGOT) 23, Alanine Aminotransferase (ALT/SGPT) 19, Alkaline Phosphatase 67, Total Bilirubin 0.6, Total Protein 5.8 L, Albumin 3.1 L Allergies Coded Allergies: No Known Allergies (Verified , 11/05/16) Home Medications Scheduled (Co Q-10) 100 Mg Cap, 100 MG PO DAILY, (Reported) (Simbrinza 1-0.2 %) 1 Yana Yana, 1 DROP OU BID, (Reported) Aspirin (Aspirin 81) 81 Mg Tab, 81 MG PO QHS, (Reported) Calcium Carbonate (Calcium) 500 Mg Chw, 500 MG PO DAILY, (Reported) Lisinopril (Lisinopril) 5 Mg Tab, 5 MG PO DAILY, (Reported) Metoprolol Tartrate (Metoprolol Tartrate) 25 Mg Tab, 25 MG PO BID, (Reported) Multivitamins Chewable *[facility] STOCKED* (Animal Shapes with C & FA *[facility] STOCKED*) 1 Tab Chew, 2 TAB PO DAILY, (Reported) Simvastatin (Simvastatin) 20 Mg Tab, 20 MG PO QHS, (Reported) Timolol Maleate (Timolol Maleate) 0.5 % Ora, 1 DROP OU BID, (Reported) Travoprost (Travatan Z) 50 Drop/2.5 Ml Soln, 1 DROP OU QHS, (Reported) GME ATTESTATION GME ATTESTATION My preceptor for this patient encounter was physically present in the building during the encounter and was fully available. As needed, all aspects of the patient interview, examination, medical decision making process, and medical care plan development were reviewed and approved by the preceptor. Preceptor is aware and concurs with the plan as stated in the body of this note and will attest to such by his/her cosignature. YENNI COSTELLO DO Jan 06, 2017 09:48
[2017-01-06] MEDS ORDERED: ceFAZolin 1GM INJ (J0690) As Ordered ONE (17:00)
[2017-01-06] MEDS ORDERED: ceFAZolin 2 GM/D5W 50 ML IV BAG (J0690) As Ordered ONE (17:14)
[2017-01-06] MEDS ORDERED: LIDOCAINE 2% INJ 100 MG/5 ML SDV (FOR ANES.) As Ordered ONE (18:13)
[2017-01-06] MEDS ORDERED: KETAMINE HCL 200 MG/20 ML VIAL As Ordered ONE (18:13)
[2017-01-06] MEDS ORDERED: PROPOFOL 200 MG/20 ML VIAL As Ordered ONE (18:13)
[2017-01-06] MEDS ORDERED: fentaNYL 100 MCG/2 ML INJECTION (J3010) As Ordered ONE (18:13)
[2017-01-06] MEDS ORDERED: ONDANSETRON 4MG/2ML VIAL (J2405) As Ordered ONE (18:13)
[2017-01-06] MEDS: LR 1,000 ML IV SCH ×3 (18:40→19:55)
[2017-01-06] MEDS ORDERED: NS 1,000 ML IV SCH (19:00)
[2017-01-06] MEDS ORDERED: PERCOCET 5MG/325MG TAB PO PRN ×2 (19:00→20:30)
[2017-01-06] MEDS ORDERED: ONDANSETRON 4MG/2ML VIAL (J2405) IV PRN ×2 (19:00→20:30)
[2017-01-06] MEDS ORDERED: fentaNYL 100 MCG/2 ML INJECTION (J3010) IV PRN ×2 (19:00→20:30)
[2017-01-06] MEDS ORDERED: MORPHINE 2 MG/ML 1ML SYRINGE IV PRN ×3 (19:00→20:30)
[2017-01-06] MEDS ORDERED: KETOROLAC 30 MG/ML VIAL (J1885) As Ordered ONE (19:19)
[2017-01-06] MEDS ORDERED: KETOROLAC 30 MG/ML VIAL (J1885) IV ONE (19:30)
[2017-01-06] MEDS ORDERED: LR 1,000 ML IV SCH (20:30)
[2017-01-06] MEDS ORDERED: LATANOPROST 0.005% OPHTH SOLN 2.5 ML OU SCH (21:00)
[2017-01-07 00:30] VITALS: BP 123/66
[2017-01-07 04:30] VITALS: BP 144/83
--- NOTE | 2017-01-07 07:54 | IPN ---
DATE: 01/06/2017 The patient is seen and examined at the bedside. Chart has been reviewed. This morning, the patient denies any chest pain, pressure or tightness, shortness of breath. Complains of heaviness of the left leg. No other issues per nursing. Temperature 97.8, pulse 71, respiratory 20, blood pressure 125/83, 97% on room air. GENERAL: Awake, alert, oriented times three. Answering questions appropriately. LUNGS: Clear to auscultation. No wheezing, rales or rhonchi. HEART: S1, S2. Sinus rhythm. ABDOMEN: Nontender, nondistended. Positive bowel sounds. EXTREMITIES: No cyanosis, clubbing or pitting edema. CBC, metabolic panel, and imaging studies have been reviewed. ASSESSMENT AND PLAN: This is an 81-year-old female who presented status post mechanical fall with a hip fracture on the left. IMPRESSION: 1. Hip fracture. Orthopedic surgery has been consulted. Anesthesia has requested cardiology consultation. Per Dr. Barnes, the patient is medically optimized to proceed to the operating room. Continue metoprolol. Aspirin has been withheld. 2. Hypertension. On metoprolol. 3. Paroxysmal atrial fibrillation. Status post ablation. On metoprolol. No anticoagulation due to planned surgery. 4. History of coronary artery disease, status post two stents. Off Plavix for four years. 5. Hypercholesterolemia. The patient is medically optimized to proceed to a left hip percutaneous screw fixation.
--- NOTE | 2017-01-07 08:13 | REP ---
Left hip: Two views. History: Femoral fracture. 59 seconds of fluoroscopy time is reported. Findings: A sequence of two last image hold fluoro spot radiographs of the left hip document pin fixation for left femoral neck fracture. Signed by Byron Boyle MD 01/07/2017 08:30 A
[2017-01-07] MEDS: SENOKOT S TAB PO SCH ×2 (09:36→20:25)
[2017-01-07] MEDS: MOM 30ML SUSPENSION UDC PO SCH (09:37)
[2017-01-07] MEDS: ENOXAPARIN 40 MG/0.4 ML SYRINGE (J1650) SC SCH (09:37)
[2017-01-07] MEDS: MIRALAX *UNIT DOSE* 17GM PACKET PO SCH (09:37)
[2017-01-07 10:00] VITALS: BP 125/65
--- NOTE | 2017-01-07 13:23 | RO ---
DATE OF SURGERY: 01/06/2017 PREOPERATIVE DIAGNOSIS: Left valgus impacted femoral neck fracture. POSTOPERATIVE DIAGNOSIS: Left valgus impacted femoral neck fracture. PROCEDURE PERFORMED: Left hip percutaneous cannulated screw fixation. PRIMARY SURGEON: Trae Keyes MD REGULATORY INTERNSHIP: NUSRAT Smith nurse's assistant ANESTHESIA: Spinal. ESTIMATED BLOOD LOSS: Less than 50 mL. IMPLANTS: Synthes 7.3 cannulated partially threaded screws with washers. SPECIMENS: . No blood administered. No complications. DESCRIPTION OF PROCEDURE: Technical procedure: The patient was identified in the preoperative holding area by name, medical record number, and date of . The surgical site was marked in consultation with the patient, and she was evaluated by anesthesia. When she was ready, she was brought back to the operative suite on a gurney and transferred to the operating room (OR) table. At this point, spinal anesthesia was induced. The left lower extremity was next sterilely prepped and draped in the usual fashion. She had been placed in the fracture table with gentle traction applied to the left lower extremity, appropriately padding all bony prominences. Preliminary fluoroscopic views confirmed satisfactory closed reduction of a valgus impacted femoral neck fracture. Prior to beginning the procedure, a final time-out was performed, and all in the room agreed. She was given intravenous (IV) antibiotics prior to incision. I began the procedure by marking the location of the planned incision using fluoroscopic guidance. I next made a longitudinal dissection centered over the greater trochanter, dissecting down through the skin and subcutaneous fat. Next , I split the iliotibial band and identified the lateral cortex of the femur. Next, I inserted a threaded guidewire in an inferior position adjacent to the calcar, confirming satisfactory position with multiple fluoroscopic views. Next , I used the bullet guide to place a second superior anterior and a third superior and a posterior threaded guidewires also in satisfactory position with multiple fluoroscopic views. Next, the screws were sized and sequentially inserted after provisional reaming in a limited way. Satisfactory purchase and fixation were appreciated. Multiple fluoroscopic views, AP, lateral, and live fluoroscopy confirmed satisfactory reduction of the fracture and placement of all hardware. The wound was next copiously irrigated and closed in layers. Sterile dressings were applied, and the patient was brought out of anesthesia. SETH
[2017-01-07] MEDS: TIMOLOL MALEATE 0.5% OPHTH SOLN 5 ML OU SCH ×2 (13:40→20:26)
[2017-01-07] MEDS: METOPROLOL TART 25 MG TABLET PO SCH ×2 (13:41→20:25)
[2017-01-07] MEDS: CALCIUM CARBONATE 500 MG CHEW U/D PO SCH (13:41)
[2017-01-07] MEDS: LISINOPRIL 5 MG TAB PO SCH (13:41)
[2017-01-07] MEDS: MULTIVITAMINS CHILDREN'S CHEWABLE TABLET PO SCH (13:42)
[2017-01-07 14:00] VITALS: BP 128/70
--- NOTE | 2017-01-07 15:29 | REP ---
LEFT HIP: TWO VIEWS. HISTORY: Postop. FINDINGS: AP and frogleg views of the left hip demonstrate three femoral pins transfixing the subcapital fracture of the left hip in good position. The pins are subcortical on both views. Signed by Byron Boyle MD 01/07/2017 03:32 P
[2017-01-07] MEDS: SIMVASTATIN 20 MG TAB PO SCH (20:25)
[2017-01-07] MEDS: ASPIRIN 81 MG ENTERIC TAB PO SCH (20:25)
[2017-01-07] MEDS: ACETAMINOPHEN TAB 650MG DOSE (2X325MG) PO PRN (20:25)
[2017-01-07] MEDS: LATANOPROST 0.005% OPHTH SOLN 2.5 ML OU SCH (20:26)
[2017-01-07] MEDS: PERCOCET 5MG/325MG TAB PO PRN (20:27)
[2017-01-07] MEDS ORDERED: TIMOLOL MALEATE 0.5% OPHTH SOLN 5 ML OU SCH (21:00)
[2017-01-07] MEDS ORDERED: NON-FORMULARY 1 EA EA OU SCH (21:00)
--- NOTE | 2017-01-07 21:41 | IPN ---
DATE: 01/07/2017 Patient seen and examined at the bedside. Chart has been reviewed. This morning, patient complains of slight discomfort with ambulation. No shortness of breath, pressure, or tightness. No issues per nursing overnight. Urine output has been adequate. Afebrile. No complaints of chills, nausea, or vomiting. Tolerating diet well. VITAL SIGNS: Temperature 99.3, pulse 70, respiratory rate 12, blood pressure 144/83, 97% on room air. GENERAL: Patient is awake, alert, oriented times three, answering questions appropriately. LUNGS: Clear to auscultation. Diminished. Occasional wheezing. HEART: S1, S2, sinus rhythm. ABDOMEN: Soft, nontender, nondistended. Positive bowel sounds. Removed the Cagle catheter. Trace edema. LABORATORY DATA: Reviewed. Microbiology and imaging studies reviewed. ASSESSMENT AND PLAN: This is an 81-year-old female who presented status post mechanical fall, postoperative day #1 with the following issues: 1. Mechanical fall status post hip fracture, postoperative day #1. Pain management, bowel regimen, physical therapy per orthopedic surgery. 2. History of coronary artery disease (CAD), myocardial infarction ([place]), and stents. No acute ischemic symptoms. 3. Atrioventricular (AV) nataly re-entrant tachycardia, status post ablation. Continue with anticoagulation. 4. Hypertension. Continue on home medications. 5. Glaucoma, chronic. May be limiting patient's ability to work with physical therapy. 6. Osteoarthritis, stable. DISPOSITION: Await PT assessment. Otherwise, patient is currently medically stable to remain on medical/surgical floor. [facility]
[2017-01-07 22:00] VITALS: BP 156/77
[2017-01-08] MEDS: TIMOLOL MALEATE 0.5% OPHTH SOLN 5 ML OU SCH ×2 (08:58→23:05)
[2017-01-08] MEDS: MIRALAX *UNIT DOSE* 17GM PACKET PO SCH (08:58)
[2017-01-08] MEDS: MOM 30ML SUSPENSION UDC PO SCH (08:58)
[2017-01-08] MEDS: LISINOPRIL 5 MG TAB PO SCH (08:59)
[2017-01-08] MEDS: MULTIVITAMINS CHILDREN'S CHEWABLE TABLET PO SCH (08:59)
[2017-01-08] MEDS: CALCIUM CARBONATE 500 MG CHEW U/D PO SCH (08:59)
[2017-01-08] MEDS: ENOXAPARIN 40 MG/0.4 ML SYRINGE (J1650) SC SCH (08:59)
[2017-01-08] MEDS: METOPROLOL TART 25 MG TABLET PO SCH ×2 (08:59→23:04)
[2017-01-08] MEDS: SENOKOT S TAB PO SCH ×2 (08:59→23:04)
[2017-01-08] MEDS: PERCOCET 5MG/325MG TAB PO PRN ×2 (09:01→16:06)
[2017-01-08 14:00] VITALS: BP 129/71
[2017-01-08 22:00] VITALS: BP 146/67
[2017-01-08] MEDS: ASPIRIN 81 MG ENTERIC TAB PO SCH (23:04)
[2017-01-08] MEDS: ACETAMINOPHEN TAB 650MG DOSE (2X325MG) PO PRN (23:05)
[2017-01-08] MEDS: LATANOPROST 0.005% OPHTH SOLN 2.5 ML OU SCH (23:05)
[2017-01-08] MEDS: SIMVASTATIN 20 MG TAB PO SCH (23:05)
[2017-01-09 06:00] VITALS: BP 135/88
[2017-01-09] MEDS: TIMOLOL MALEATE 0.5% OPHTH SOLN 5 ML OU SCH ×2 (09:00→21:22)
[2017-01-09] MEDS: CALCIUM CARBONATE 500 MG CHEW U/D PO SCH (09:00)
[2017-01-09] MEDS: ENOXAPARIN 40 MG/0.4 ML SYRINGE (J1650) SC SCH (10:23)
[2017-01-09] MEDS: METOPROLOL TART 25 MG TABLET PO SCH ×2 (10:24→21:20)
[2017-01-09] MEDS: MOM 30ML SUSPENSION UDC PO SCH (10:24)
[2017-01-09] MEDS: MULTIVITAMINS CHILDREN'S CHEWABLE TABLET PO SCH (10:24)
[2017-01-09] MEDS: SENOKOT S TAB PO SCH ×2 (10:25→21:00)
[2017-01-09] MEDS: LISINOPRIL 5 MG TAB PO SCH (10:25)
[2017-01-09] MEDS: MIRALAX *UNIT DOSE* 17GM PACKET PO SCH (10:25)
[2017-01-09 14:00] VITALS: BP 129/72
[2017-01-09] MEDS: SIMVASTATIN 20 MG TAB PO SCH (21:20)
[2017-01-09] MEDS: ASPIRIN 81 MG ENTERIC TAB PO SCH (21:20)
[2017-01-09] MEDS: PERCOCET 5MG/325MG TAB PO PRN (21:21)
[2017-01-09] MEDS: LATANOPROST 0.005% OPHTH SOLN 2.5 ML OU SCH (21:22)
[2017-01-09 22:00] VITALS: BP 165/77
--- NOTE | 2017-01-09 22:32 | IPN ---
DATE: 01/09/2017 Patient seen and examined at the bedside. Chart has been reviewed. This morning, the patient has no new complaints. No chest pain, pressure, tightness, shortness of breath. Slight pain when she ambulates, managing well with a walker. Temperature 98.3, pulse 72, respiratory rate 18, blood pressure 135/88, 96% on room air. Generally, awake, alert, oriented times three, answering questions appropriately. Lungs are clear to auscultation. No wheezing, rales, or rhonchi. Heart: S1, S2, sinus rhythm. Abdomen is soft, nontender, nondistended. Positive bowel sounds. Extremities: No cyanosis, clubbing or pitting edema. Postoperative changes on the left hip, clean and dry. No significant drainage. ASSESSMENT AND PLAN: An 81-year-old female status post mechanical fall, postoperative day #3. IMPRESSION: 1. Mechanical fall, status post left hip fracture, postoperative day #3. Pain management, bowel regimen, physical therapy Possible discharge on Thursday. 2. History of coronary artery disease, myocardial infarction ([place]) and stents. No active acute symptoms. 3. Atrioventricular (AV) nataly reentrant tachycardia. Status post ablation. Continue anticoagulation. 4. Hypertension. Continue home medications. 5. Glaucoma, chronic. 6. Osteoarthritis, stable. DISPOSITION: Discharge home on Thursday. SETH
[2017-01-10 06:00] VITALS: BP 131/64
[2017-01-10 07:16] LABS: BASO % 0.7 % (0.0-1.0); EOS # 0.2 K/mm3 (0.0-0.50); EOS % 3.4 % (0.0-3.0); LARGE UNSTAINED CELL # 0.1 K/mm3 (0.0-0.4); LARGE UNSTAINED CELL % 2.3 % (0.0-4.0); LYMPH # 1.5 K/mm3 (1.5-4.5); LYMPH % 25.2 % (24.0-44.0); MEAN CORPUSCULAR HEMOGLOBIN 29.7 pg (27.0-33.0); MEAN CORPUSCULAR HGB CONC 32.6 g/dl (32.0-36.5); MEAN CORPUSCULAR VOLUME 91.3 fl (80.0-96.0); MONO # 0.3 K/mm3 (0.0-0.8); MONO % 5.8 % (0.0-5.0); NEUTROPHILS # 3.5 K/mm3 (1.8-7.7); NEUTROPHILS % 62.6 % (36.0-66.0); PLATELET COUNT, AUTOMATED 179 k/mm3 (150-450); RED CELL DISTRIBUTION WIDTH 13.2 % (11.5-14.5); WHITE BLOOD COUNT 5.6 K/mm3 (4.0-10.0)
[2017-01-10] MEDS: SENOKOT S TAB PO SCH ×2 (09:00→21:20)
[2017-01-10] MEDS: MIRALAX *UNIT DOSE* 17GM PACKET PO SCH (09:00)
[2017-01-10 09:39] LABS: ANION GAP 8 MEQ/L (8-16); BLOOD UREA NITROGEN 24 MG/DL (7-18); CALCIUM LEVEL 8.2 MG/DL (8.8-10.2); CARBON DIOXIDE LEVEL 29 MEQ/L (21-32); CHLORIDE LEVEL 110 MEQ/L (98-107); CREATININE FOR GFR 0.55 MG/DL (0.55-1.02); GLOMERULAR FILTRATION RATE > 60.0 (>32); GLUCOSE, FASTING 97 MG/DL (83-110); POTASSIUM SERUM 4.5 MEQ/L (3.5-5.1); SODIUM LEVEL 147 MEQ/L (136-145)
[2017-01-10] MEDS: LISINOPRIL 5 MG TAB PO SCH (10:02)
[2017-01-10] MEDS: METOPROLOL TART 25 MG TABLET PO SCH ×2 (10:02→21:20)
[2017-01-10] MEDS: MOM 30ML SUSPENSION UDC PO SCH (10:03)
[2017-01-10] MEDS: MULTIVITAMINS CHILDREN'S CHEWABLE TABLET PO SCH (10:03)
[2017-01-10] MEDS: CALCIUM CARBONATE 500 MG CHEW U/D PO SCH (10:03)
[2017-01-10] MEDS: ENOXAPARIN 40 MG/0.4 ML SYRINGE (J1650) SC SCH (10:04)
[2017-01-10] MEDS: TIMOLOL MALEATE 0.5% OPHTH SOLN 5 ML OU SCH ×2 (10:05→21:00)
[2017-01-10 14:00] VITALS: BP 147/86
--- NOTE | 2017-01-10 19:01 | IPN ---
DATE: 01/10/2017 Patient is seen and examined at the bedside. Chart has been reviewed. This morning patient has no new complaints. Ordering breakfast at the bedside. Hoping to go home on Thursday. Waiting for her family support to come back. Temperature 97.9, pulse 70, respiratory rate 18, blood pressure 131/64, 96% on room air. GENERAL: Awake, alert, oriented times three, answering questions appropriately. LUNGS: Clear to auscultation. No wheezes, rales, or rhonchi. HEART: S1, S2, sinus rhythm. ABDOMEN: Soft, nontender, nondistended. Positive bowel sounds. EXTREMITIES: No clubbing, cyanosis, or edema. Postoperative changes on the left hip. No drainage. LABORATORY DATA: Reviewed. IMAGING STUDIES: Reviewed. IMPRESSION: An 81-year-old female postoperative day #4 with mechanical fall. 1. Mechanical fall status post left hip fracture, postoperative day 4. Pain management, bowel regimen, physical therapy. Discharge Thursday. Deep vein thrombosis (DVT) prophylaxis. 2. History of coronary artery disease (CAD), myocardial infarction ([place]), and stent. No active acute issues. 3. Atrioventricular (AV) re-entrant tachycardia status post ablation. 4. Hypertension, on home medications. 5. Glaucoma. 6. Chronic osteoarthritis, stable. DISPOSITION: Discharge home on Thursday. SETH
[2017-01-10] MEDS: LATANOPROST 0.005% OPHTH SOLN 2.5 ML OU SCH (21:00)
[2017-01-10] MEDS: SIMVASTATIN 20 MG TAB PO SCH (21:19)
[2017-01-10] MEDS: PERCOCET 5MG/325MG TAB PO PRN (21:20)
[2017-01-10] MEDS: ASPIRIN 81 MG ENTERIC TAB PO SCH (21:20)
[2017-01-10 22:00] VITALS: BP 168/76
[2017-01-11 06:00] VITALS: BP 128/86
[2017-01-11] MEDS: MIRALAX *UNIT DOSE* 17GM PACKET PO SCH (09:00)
[2017-01-11] MEDS: MOM 30ML SUSPENSION UDC PO SCH (09:00)
[2017-01-11] MEDS: TIMOLOL MALEATE 0.5% OPHTH SOLN 5 ML OU SCH ×2 (09:00→20:41)
[2017-01-11] MEDS: ENOXAPARIN 40 MG/0.4 ML SYRINGE (J1650) SC SCH (09:00)
[2017-01-11] MEDS: MULTIVITAMINS CHILDREN'S CHEWABLE TABLET PO SCH (10:50)
[2017-01-11] MEDS: LISINOPRIL 5 MG TAB PO SCH (10:50)
[2017-01-11] MEDS: SENOKOT S TAB PO SCH ×2 (10:51→20:41)
[2017-01-11] MEDS: CALCIUM CARBONATE 500 MG CHEW U/D PO SCH (10:51)
[2017-01-11] MEDS: METOPROLOL TART 25 MG TABLET PO SCH ×2 (10:51→20:43)
[2017-01-11] MEDS: PERCOCET 5MG/325MG TAB PO PRN ×2 (10:55→21:24)
[2017-01-11 14:00] VITALS: BP 119/65
--- NOTE | 2017-01-11 14:49 | IPN ---
DATE: 01/11/2017 The patient is seen and examined at the bedside. Chart has been reviewed. No new complaints this morning. Denies chest pain, pressure, tightness, shortness of breath, palpitations, lightheadedness, or dizziness. Afebrile. PHYSICAL EXAMINATION: VITAL SIGNS: Temperature 98.2, pulse 75, respiratory rate 18, blood pressure 128/86, 96% on room air. LUNGS: Clear to auscultation. GENERAL: Awake, alert, oriented times three. Answering questions appropriately. No jugular venous distention (JVD), thyromegaly. Normocephalic, atraumatic. Pupils are round, reactive. Extraocular muscles are intact. LUNGS: Clear to auscultation. No wheezing, rales or rhonchi. HEART: S1, S2. Sinus rhythm. ABDOMEN: Soft, nontender, nondistended. Positive bowel sounds. EXTREMITIES: No cyanosis, clubbing or pitting edema. Left hip status post surgery, stable. No drainage. IMPRESSION: An 81-year-old female postoperative day #5 with mechanical fall with left hip fracture. 1. Mechanical fall status post left hip fracture. Pain management, bowel regimen, physical therapy. Discharge Thursday. Deep vein thrombosis (DVT) prophylaxis. 2. History of coronary artery disease (CAD), myocardial infarction ([place]), and stent. No active acute issues. 3. Atrioventricular (AV) re-entrant tachycardia, status post ablation. 4. Hypertension, on home medications. 5. Glaucoma, stable. 6. Chronic osteoarthritis, stable. DISPOSITION: Discharge home on Thursday. SETH
[2017-01-11] MEDS: LATANOPROST 0.005% OPHTH SOLN 2.5 ML OU SCH (20:41)
[2017-01-11] MEDS: SIMVASTATIN 20 MG TAB PO SCH (20:41)
[2017-01-11] MEDS: ASPIRIN 81 MG ENTERIC TAB PO SCH (20:41)
[2017-01-11 22:00] VITALS: BP 131/74
[2017-01-12] MEDS: PERCOCET 5MG/325MG TAB PO PRN (04:09)
[2017-01-12 06:00] VITALS: BP 139/76
[2017-01-12] MEDS ORDERED: SENO8.6T10 PO (07:06)
[2017-01-12] MEDS ORDERED: LOVE1INJ SC ×2 (07:06→08:02)
[2017-01-12] MEDS ORDERED: MILKSUS PO (07:06)
[2017-01-12] MEDS ORDERED: PEG1POW PO (07:06)
[2017-01-12] MEDS ORDERED: PERC5TAB12 PO (07:56)
[2017-01-12] MEDS: LISINOPRIL 5 MG TAB PO SCH (10:44)
[2017-01-12] MEDS: MULTIVITAMINS CHILDREN'S CHEWABLE TABLET PO SCH (10:45)
[2017-01-12] MEDS: SENOKOT S TAB PO SCH (10:45)
[2017-01-12] MEDS: CALCIUM CARBONATE 500 MG CHEW U/D PO SCH (10:45)
[2017-01-12 10:46] VITALS: BP 139/76
[2017-01-12] MEDS: METOPROLOL TART 25 MG TABLET PO SCH (10:46)
[2017-01-12] MEDS: MIRALAX *UNIT DOSE* 17GM PACKET PO SCH (10:46)
[2017-01-12] MEDS: TIMOLOL MALEATE 0.5% OPHTH SOLN 5 ML OU SCH (10:46)
[2017-01-12] MEDS: MOM 30ML SUSPENSION UDC PO SCH (10:46)
[2017-01-12] MEDS: ENOXAPARIN 40 MG/0.4 ML SYRINGE (J1650) SC SCH (13:17)
--- NOTE | 2017-01-12 16:17 | DSES ---
DATE OF ADMISSION: 01/05/2017 DATE OF DISCHARGE: 01/12/2017 CONSULTANTS: Dr. Eric Barnes, Cardiology. Dr. Trae Keyes, Orthopedic Surgeon PRIMARY DISCHARGE DIAGNOSES: Mechanical fall, left hip fracture status post percutaneous cannulated screw fixation. History of coronary artery disease, myocardial infarction ([place]) and stent. Atrioventricular (AV) reentrance tachycardia, status post ablation. Hypertension. Glaucoma. Chronic osteoarthritis. DISCHARGE MEDICATIONS: - Percocet one to two tablets every 6 hours as needed for pain - aspirin 81 mg daily - Lovenox 40 mg subcu daily - Milk of Magnesia 30 mL daily - MiraLAX one packet daily - aspirin 81 mg daily - calcium 500 mg daily - Coenzyme Q 100 mg daily - lisinopril 5 mg daily - metoprolol 25 mg twice a day - multivitamin two tablets daily - Simbrinza one drop both eyes (OU) twice a day - simvastatin 20 mg nightly - timolol one drop both eyes twice a day - Travatan Z one drop both eyes nightly HOSPITAL COURSE: This is an 81-year-old female who had a mechanical fall at home, sustaining left hip fracture, evaluated by cardiology and felt medically optimized to proceed to the operating room. She underwent left hip percutaneous cannulated screw fixation with no complications. Postoperatively, was anticoagulated with Lovenox and continued on aspirin. The patient was kept in the hospital due to poor family support and discharged on 01/12/2017 with no other acute issues during the hospital stay. LABS ON DISCHARGE: White count 5.6, hemoglobin 11, hematocrit 35, platelet count 179. Sodium 147, potassium 4.5, chloride 110, bicarbonate 29, BUN 24, creatinine 0.55, glucose of 97. Pelvic x-ray on admission, 01/05/2017: No pelvic fracture. Subcapital fracture of the left hip. 01/06/2017 left hip x-ray: Left hip pin fixation of left femoral neck fracture. TIME SPENT ON DISCHARGE: 30 minutes.
--- NOTE | 2017-01-13 11:57 | REP ---
Chest one-view HISTORY: Medical clearance Comparison: None The lungs are clear. The heart is normal in size. The pulmonary vasculature is normal in appearance. Impression: No acute disease. Signed by Eduard Avila MD 01/13/2017 11:48 A
== END 2017-01-12 14:40 | disposition home health service (06) | DRG 482 ==
LOC: M ED 19:09 → EDBD 19:09 → M ED INP 21:32 → M MS5PR 01-06 00:20
PROVIDERS: ADMIT Internal Medicine; ATTEND General Practice
PROC: 0QS704Z Reposition Left Upper Femur with Internal Fixation Device, Open Approach (ICD-10-PCS; principal; 2017-01-06 15:00)
DX: S72.002A Fracture of unspecified part of neck of left femur, initial encounter for closed fracture (principal); I25.10 Atherosclerotic heart disease of native coronary artery without angina pectoris; I10 Essential (primary) hypertension; H40.9 Unspecified glaucoma; I48.91 Unspecified atrial fibrillation; M19.90 Unspecified osteoarthritis, unspecified site; Z79.82 Long term (current) use of aspirin; Z79.899 Other long term (current) drug therapy; Z95.9 Presence of cardiac and vascular implant and graft, unspecified; W10.8XXA Fall (on) (from) other stairs and steps, initial encounter; Y92.007 Garden or yard of unspecified non-institutional (private) residence as the place of occurrence of the external cause; Y93.01 Activity, walking, marching and hiking; Y99.8 Other external cause status; I25.2 Old myocardial infarction; Z90.710 Acquired absence of both cervix and uterus; Z96.653 Presence of artificial knee joint, bilateral; Z98.49 Cataract extraction status, unspecified eye

== ENCOUNTER → 2017-01-05 | Outpatient (CLI) | payer MEDICARE ==
[~2017-01-05] MED LIST changes: -E-Z-PAQUE 96% w/w SUSP 176GM BTL As Ordered ONE; -VARIBAR NECTAR 40% w/v 240ML SUSP BTL As Ordered ONE; -VARIBAR PUDDING 40% w/v 230ML TUBE As Ordered ONE
--- NOTE | 2017-01-05 21:10 | REP ---
LEFT HIP COMPLETE: 01/05/2017. Clinical history: Fell, trauma and hip pain. Findings: AP and frog-leg views of the hip show impacted fracture to the femoral neck at the basicervical region. Hip joint space without narrowing. No other fracture of the left hip itself. The trochanters and subtrochanteric femur intact. Pubic rami, symphysis pubis, iliac bone, sacral ala and foramina all grossly intact. Impression: 1.. Impacted fracture basicervical region left hip without subluxation, dislocation or other acute finding. Signed by Sloan Marcano MD 01/06/2017 11:00 A
--- NOTE | 2017-01-05 21:12 | REP ---
LEFT HUMERUS, COMPLETE: 01/05/2017. Clinical history: Trauma, patient fell on arm evaluate for fracture. Findings: Five views are provided to encompass the entirety of the humerus in two projections. Bones are severely demineralized. AC and glenohumeral joints intact without definite fracture. There are degenerative changes at the elbow without gross fracture. Impression: 1. Severe osteoporosis without definite fracture of the humerus. Signed by Sloan Marcano MD 01/06/2017 11:01 A
== END ==
LOC: M LRY 17:14
PROVIDERS: ATTEND Nurse Practitioner Family
DX: S72.044A Nondisplaced fracture of base of neck of right femur, initial encounter for closed fracture (principal); S49.92XA Unspecified injury of left shoulder and upper arm, initial encounter; M81.0 Age-related osteoporosis without current pathological fracture; W10.8XXA Fall (on) (from) other stairs and steps, initial encounter; Y92.007 Garden or yard of unspecified non-institutional (private) residence as the place of occurrence of the external cause; Y93.01 Activity, walking, marching and hiking; Y99.8 Other external cause status

== ENCOUNTER → 2017-01-21 | Outpatient (REF) | payer MEDICARE ==
[~2017-01-21] MED LIST changes: +CHEW500C2 PO; +CO Q100C PO; +LOVE1INJ SC; +METO25TA4 PO; +MILKSUS PO; +PEG1POW PO; +PERC5TAB12 PO; +SENO8.6T10 PO; +SIMB1SUS OU; +TIMO0.5S29 OU; +TRAV04OPD OU; +VITACHTA PO
== END ==
LOC: M SFHCLERA 11:24
PROVIDERS: ATTEND Physician Assistant
DX: R35.0 Frequency of micturition (principal)
CPT/HCPCS: 81002; 87086; G0463

== ENCOUNTER → 2017-01-25 | Outpatient (CLI) | payer MEDICARE ==
--- NOTE | 2017-01-25 16:36 | REP ---
Clinical: Trauma. Technique: Frontal view of the chest with multiple views of the right and left hemithorax. Findings: Frontal view of the chest demonstrates chronic scoliosis and interstitial changes without acute cardiopulmonary process. Multiple views of the right and left hemithorax demonstrates no obvious acute rib fracture or pathology. Impression: No rib fracture identified. Signed by Malik Ramos MD 01/25/2017 04:27 P
== END ==
LOC: M LRY 15:42
PROVIDERS: ATTEND Nurse Practitioner Family
DX: R07.81 Pleurodynia (principal)
CPT/HCPCS: 71111; G0463

== ENCOUNTER → 2017-02-25 | Outpatient (CLI) | payer MEDICARE ==
[~2017-02-25] MED LIST changes: +GASTROGRAFIN SOLUTION 30ML (Q9963) As Ordered ONE; +ISOVUE-370 76% 100ML VIAL (Q9967) As Ordered ONE
--- NOTE | 2017-02-25 15:07 | REP ---
CT NECK WITH CONTRAST: HISTORY: Dysphagia. CONTRAST: Isovue-370, 100 mL A punctate calcification is present in the left tongue base . The naso-, nancy- and hypopharynx, larynx and subglottic trachea are otherwise normal in appearance. The salivary and thyroid glands are normal in size and density. Small lymph nodes less than 1 cm in size are present in the internal jugular chains, posterior triangles, submandibular and submental areas. Atherosclerotic calcification is present at the carotid bifurcations. Degenerative change is present in the cervical spine. The lung apices are clear. Mucosal thickening is present in the right ethmoid and maxillary sinuses. IMPRESSION: There is no neck mass or adenopathy. Signed by Eduard Avila MD 02/25/2017 03:11 P
--- NOTE | 2017-02-25 16:19 | REP ---
CT of the abdomen with IV and bowel contrast: The pelvis is not included. There are no comparison studies. The mild Within the visualized lower lung esteves. There is a calcified granuloma in the deep posterior sulcus of the left lower lobe. There is a 1 cm nodular density in the deep sulcus of the right lower lobe. The hepatic parenchyma is homogeneous. There are surgical clips in the gallbladder fossa. The common biliary duct measures 11 mm in diameter which is upper normal in a postcholecystectomy patient. The pancreas is unremarkable. Spleen is normal size and unremarkable except for occasional calcified granulomas. The adrenals are unremarkable. There is no adenopathy. The stomach is unremarkable. There is a small hiatal hernia. There is a calcification along the wall of the hiatal hernia, possibly a calcified granuloma. The kidneys and abdominal aorta are unremarkable. There is no bowel distension. The visualized mesentery is unremarkable. Impression: Calcified granuloma in the lower lobe of the left lung. Nodular density in the lower lobe of the right lung. Follow-up is recommended. Calcified granuloma adjacent to a small hiatal hernia, possibly a granuloma. Cholecystectomy. Otherwise, negative CT study of the abdomen. Signed by Hai Sood MD 02/25/2017 04:11 P
== END ==
LOC: M RAD 12:01
PROVIDERS: ATTEND Internal Medicine Gastroenterology
DX: R13.10 Dysphagia, unspecified (principal); R63.4 Abnormal weight loss
CPT/HCPCS: 70491; 74160; Q9963; Q9967

== ENCOUNTER → 2017-03-02 | Outpatient (CLI) | payer MEDICARE ==
[~2017-03-02] MED LIST changes: +E-Z-GAS II EFFERVESCENT PACKET (SODIUM BICARB./CITRIC ACID/SIMETHICONE) As Ordered ONE; +E-Z-HD 98% w/w 340GM SUSP BTL As Ordered ONE; +E-Z-PAQUE 96% w/w SUSP 176GM BTL As Ordered ONE; -GASTROGRAFIN SOLUTION 30ML (Q9963) As Ordered ONE; -ISOVUE-370 76% 100ML VIAL (Q9967) As Ordered ONE
--- NOTE | 2017-03-02 16:19 | REP ---
ESOPHAGRAM: The procedure was performed by GRADY Meraz under the direct supervision of Dr. Stephenson. All imaging was reviewed with Dr. Stephenson prior to dictation. The patient was able to ingest liquid barium and air in a quantity sufficient to produce a double contrast examination. The oral and pharyngeal stages of deglutition were within normal limits. Esophageal transport was prompt and efficient. There was no evidence of esophagitis, stricture, mucosal ring, or hiatal hernia. Gastroesophageal reflux was not observed on this exam. IMPRESSION: Unremarkable double contrast upper GI examination. Fluoroscopy time is 2 minutes and 13 seconds were utilized for this procedure. Reviewed by GRADY Giles 03/02/2017 04:20 PEdited and Signed by Hai Stephenson MD 03/03/2017 07:29 P
== END ==
LOC: M RAD 09:17
PROVIDERS: ATTEND Internal Medicine Gastroenterology
DX: R13.10 Dysphagia, unspecified (principal)

== ENCOUNTER 2017-03-31 06:41 | Day surgery (SDC) | payer MEDICARE ==
[~2017-03-31] VITALS: Ht 167.6 cm; Wt 54.9 kg
[~2017-03-31 06:41] MED LIST changes: -E-Z-GAS II EFFERVESCENT PACKET (SODIUM BICARB./CITRIC ACID/SIMETHICONE) As Ordered ONE; -E-Z-HD 98% w/w 340GM SUSP BTL As Ordered ONE; -E-Z-PAQUE 96% w/w SUSP 176GM BTL As Ordered ONE
[2017-03-31] MEDS ORDERED: NS 1,000 ML IV ONE (07:00)
[2017-03-31] MEDS ORDERED: LIDOCAINE 2% INJ 100 MG/5 ML SDV (FOR ANES.) As Ordered ONE (07:03)
[2017-03-31] MEDS ORDERED: PROPOFOL 200 MG/20 ML VIAL As Ordered ONE (07:03)
--- NOTE | 2017-03-31 08:07 | ROOR ---
Patient Name: Pirscilla Wilhelm Procedure Date: 03/31/2017 7:37 AM Date of : 1935 Age: 81 Room: [facility] Gender: Female Note Status: Finalized Procedure: Upper GI endoscopy Indications: Dysphagia Providers: Dandy Henley MD Referring MD: Alba BRYAN MD Requesting Provider: Medicines: Monitored Anesthesia Care Complications: No immediate complications. Procedure: Pre-Anesthesia Assessment: - Prior to the procedure, a History and Physical was performed, and patient medications and allergies were reviewed. The patient is competent. The risks and benefits of the procedure and the sedation options and risks were discussed with the patient. All questions were answered and informed consent was obtained. Patient identification and proposed procedure were verified by the physician, the nurse and the senior supplier quality engineer in the procedure room. Mental Status Examination: alert and oriented. Airway Examination: normal oropharyngeal airway and neck mobility. Respiratory Examination: clear to auscultation. CV Examination: normal. Prophylactic Antibiotics: The patient does not require prophylactic antibiotics. Prior Anticoagulants: The patient has taken no previous anticoagulant or antiplatelet agents. ASA Grade Assessment: III - A patient with severe systemic disease. After reviewing the risks and benefits, the patient was deemed in satisfactory condition to undergo the procedure. The anesthesia plan was to use monitored anesthesia care (MAC). Immediately prior to administration of medications, the patient was re-assessed for adequacy to receive sedatives. The heart rate, respiratory rate, oxygen saturations, blood pressure, adequacy of pulmonary ventilation, and response to care were monitored throughout the procedure. The physical status of the patient was re-assessed after the procedure. The Endoscope was introduced through the mouth, and advanced to the second part of duodenum. The upper GI endoscopy was accomplished without difficulty. The patient tolerated the procedure well. Findings: The examined esophagus was normal. Biopsies were obtained from the proximal and distal esophagus with cold forceps for histology of suspected eosinophilic esophagitis. Verification of patient identification for the specimen was done by the physician and nurse using the patient's name, date and medical record number. Estimated blood loss was minimal. A large hiatal hernia was present. Diffuse moderate inflammation characterized by erythema and granularity was found in the gastric body and in the gastric antrum. Two biopsies were obtained with cold forceps for histology in the gastric antrum, as well as two biopsies in the gastric body. The duodenal bulb and second portion of the duodenum were normal. Impression: - Normal esophagus. Biopsied. - Large hiatal hernia. - Gastritis. - Normal duodenal bulb and second portion of the duodenum. - Biopsies performed in the gastric antrum and in the gastric body. Recommendation: - Patient has a contact number available for emergencies. The signs and symptoms of potential delayed complications were discussed with the patient. Return to normal activities tomorrow. Written discharge instructions were provided to the patient. - Resume previous diet. - Continue present medications. - Use Protonix (pantoprazole) 40 mg PO daily - to be taken instructional interventionist 1/2 hour before breakfast for 8 weeks. - Follow an antireflux regimen. - Return to GI clinic as previously scheduled. - Return to primary care physician. Dandy Henley MD Dandy Henley MD 03/31/2017 8:07:09 AM This report has been signed electronically. Number of Addenda: 0 Note Initiated On: 03/31/2017 7:37 AM Estimated Blood Loss: Estimated blood loss was minimal.
[2017-03-31 08:43] VITALS: BP 153/87
== END 2017-03-31 09:05 | disposition home or self-care (01) ==
LOC: M OPP 06:41 → EDSTATUS 15:05
PROVIDERS: ATTEND Internal Medicine Gastroenterology
DX: R13.10 Dysphagia, unspecified (principal); K29.70 Gastritis, unspecified, without bleeding; K44.9 Diaphragmatic hernia without obstruction or gangrene; I10 Essential (primary) hypertension; E78.5 Hyperlipidemia, unspecified; I25.2 Old myocardial infarction; Z80.0 Family history of malignant neoplasm of digestive organs

== ENCOUNTER → 2017-04-24 | Outpatient (CLI) | payer MEDICARE ==
[2017-04-24 17:28] LABS: ALBUMIN 3.5 GM/DL (3.2-5.2); ALBUMIN/GLOBULIN RATIO 1.09 (1.00-1.93); ALKALINE PHOSPHATASE 75 U/L (45-117); ALT/SGPT 17 U/L (12-78); ANION GAP 4 MEQ/L (8-16); AST/SGOT 17 U/L (7-37); BILIRUBIN,TOTAL 0.2 MG/DL (0.2-1.0); BLOOD UREA NITROGEN 32 MG/DL (7-18); CALCIUM LEVEL 9.1 MG/DL (8.8-10.2); CARBON DIOXIDE LEVEL 33 MEQ/L (21-32); CHLORIDE LEVEL 104 MEQ/L (98-107); CREATININE FOR GFR 0.67 MG/DL (0.55-1.02); GLOMERULAR FILTRATION RATE > 60.0 (>32); GLUCOSE, FASTING 82 MG/DL (83-110); POTASSIUM SERUM 4.3 MEQ/L (3.5-5.1); SODIUM LEVEL 141 MEQ/L (136-145); TOTAL PROTEIN 6.7 GM/DL (6.4-8.2)
[2017-04-24 17:29] LABS: FOLATE 22.6 NG/ML (>5.4); VITAMIN B12 LEVEL 696 PG/ML (247-911)
[2017-04-24 18:12] LABS: BASO # 0.1 10^3/uL (0.0-0.2); BASO % 0.7 % (0.0-1.0); EOS # 0.1 10^3/uL (0.0-0.50); EOS % 1.5 % (0.0-3.0); IMMATURE GRANULOCYTE % 0.3 % (0-0); LYMPH # 1.4 10^3/uL (1.5-4.5); LYMPH % 20.3 % (24.0-44.0); MEAN CORPUSCULAR HEMOGLOBIN 28.7 pg (27.0-33.0); MEAN CORPUSCULAR HGB CONC 31.4 g/dl (32.0-36.5); MEAN CORPUSCULAR VOLUME 91.3 fl (80.0-96.0); MONO # 0.5 10^3/uL (0.0-0.8); MONO % 7.2 % (0.0-5.0); PLATELET COUNT, AUTOMATED 262 10^3/uL (150-450); RED CELL DISTRIBUTION WIDTH 13.9 % (11.5-14.5); WHITE BLOOD COUNT 7.1 10^3/uL (4.0-10.0)
[2017-04-24 18:52] LABS: ERYTHROCYTE SEDIMENTATION RATE 18 mm/hr (0-30)
== END ==
LOC: M LRY 13:25
PROVIDERS: ATTEND Psychiatry & Neurology Neurology
DX: I69.30 Unspecified sequelae of cerebral infarction (principal); Z79.899 Other long term (current) drug therapy

== ENCOUNTER → 2017-07-02 | Outpatient (CLI) | payer MEDICARE ==
[2017-07-14 14:12] LABS: STRIATIONAL ANTIBODIES Negative (Neg:<1:40)
[2017-07-14 14:12] LABS: ACETYLCHOLINE RCPTOR BINDING A < 0.03 nmol/L (0.00-0.24)
== END ==
LOC: M LRY 13:07
DX: G70.01 Myasthenia gravis with (acute) exacerbation (principal)
CPT/HCPCS: 86255

== ENCOUNTER 2017-08-17 12:27 | Outpatient (RCR) | payer MEDICARE | END 2017-09-14 | LOC: M ST 12:27 | DX: R13.12 Dysphagia, oropharyngeal phase (principal) | CPT/HCPCS: 92610 ==

== ENCOUNTER 2019-11-12 01:58 | Emergency (ER) | payer MEDICARE ==
[~2019-11-12] VITALS: Ht 152.4 cm; Wt 50.0 kg
[~2019-11-12 01:58] MED LIST changes: -/WARF25TA OR; -ASPI1TAB PO; +ASPI81TA26 PO; +COUM1TAB18 OR; +MILK120011 PO; -MILKSUS PO; -SIMV20TA2 PO; +SIMV20TA22 PO
[2019-11-12] MEDS ORDERED: GI COCKTAIL 50ML BTL(HYOSCYAMINE/MAALOX/LIDOCAINE VISCOUS)(1:3:1) PO ONE (02:30)
[2019-11-12 02:48] LABS: BASO % 0.3 % (0.0-1.0); EOS # 0.1 10^3/uL (0.0-0.5); EOS % 0.4 % (0.0-3.0); HEMATOCRIT 39.6 % (36.0-47.0); HEMOGLOBIN 12.6 g/dl (12.0-15.5); LYMPH # 1.3 10^3/uL (1.5-5.0); LYMPH % 10.5 % (24.0-44.0); MEAN CORPUSCULAR HEMOGLOBIN 29.5 pg (27.0-33.0); MEAN CORPUSCULAR HGB CONC 31.8 g/dl (32.0-36.5); MEAN CORPUSCULAR VOLUME 92.7 fl (80.0-96.0); MONO # 0.8 10^3/uL (0.0-0.8); MONO % 6.4 % (0.0-5.0); NEUTROPHILS # 9.9 10^3/uL (1.5-8.5); NEUTROPHILS % 82.2 % (36.0-66.0); PLATELET COUNT, AUTOMATED 216 10^3/uL (150-450); RED BLOOD COUNT 4.27 10^6/uL (4.00-5.40); WHITE BLOOD COUNT 12.1 10^3/uL (4.0-10.0)
[2019-11-12 03:18] LABS: ALBUMIN 3.5 GM/DL (3.2-5.2); ALT/SGPT 20 U/L (12-78); BILIRUBIN,DIRECT 0.1 MG/DL (0.0-0.2); BILIRUBIN,TOTAL 0.5 MG/DL (0.2-1.0); CPK CREATINE PHOSPHOKINASE 57 U/L (26-192); LIPASE 83 U/L (73-393); MB/CK RELATIVE INDEX 3.51 (< OR =4); TOTAL PROTEIN 6.7 GM/DL (6.4-8.2); TROPONIN I < 0.02 NG/ML (< 0.10)
[2019-11-12 04:45] VITALS: BP 131/62
--- NOTE | 2019-11-12 06:58 | ECGEPIP ---
[facility] - ED Test Date: 2019-11-12 Pat Name: RYLEE VICKERS Department: Room: - Gender: Female Summer Analyst: Aminata : 1935 Requested By: LLUVIA Hale Order Number: [id number] Reading MD: Humberto Richter Measurements Intervals [place] Rate: 94 P: 58 [place]: 184 QRS: 60 QRSD: 105 T: 26 QT: 342 QTc: 429 Interpretive Statements SINUS RHYTHM MODERATE INTRAVENTRICULAR CONDUCTION DELAY NSTTW ABNORMALITIES SIMILAR TO 01/05/17 Electronically Signed on 11-12-2019 6:57:47 EDT by Humberto Richter
--- NOTE | 2019-11-12 07:07 | REP ---
Clinical: Pleuritic chest pain. Comparison: 01/25/2017 Findings: Mediastinum and cardiac silhouette are stable within normal limits. Diffuse chronic interstitial changes with scattered fibrosis/scarring and mild emphysematous disease. Subtle right lower lobe opacity may reflect early infiltrate. No effusion. No pneumothorax. Skeletal structures demonstrate osteopenia and degenerative changes. Impression: Subtle right lower lobe opacity may reflect early infiltrate. Electronically Signed by Malik Ramos MD 11/12/2019 06:59 A
--- NOTE | 2019-11-16 09:28 | ED PDOC ---
Post-Departure Follow-Up dr ortiz faxed formal report of cxr fo rfu Carlyle Dozier MD Nov 16, 2019 09:28
== END 2019-11-12 05:30 | disposition home or self-care (01) ==
LOC: M ED 01:58 → EDBD 01:58 → EDSEX 01:58 → M ED 05:30
DX: R10.9 Unspecified abdominal pain (principal); I25.10 Atherosclerotic heart disease of native coronary artery without angina pectoris; I25.2 Old myocardial infarction; Z79.899 Other long term (current) drug therapy; Z79.82 Long term (current) use of aspirin

== ENCOUNTER → 2020-02-03 | Outpatient (CLI) | payer MEDICARE ==
[~2020-02-03] MED LIST changes: +CALC-362 PO; -CHEW500C2 PO
[2020-02-03 13:24] LABS: ALBUMIN 3.3 GM/DL (3.2-5.2); ALT/SGPT 16 U/L (12-78); BILIRUBIN,TOTAL 0.3 MG/DL (0.2-1.0); BLOOD UREA NITROGEN 23 MG/DL (7-18); CALCIUM LEVEL 9.3 MG/DL (8.8-10.2); CARBON DIOXIDE LEVEL 31 MEQ/L (21-32); CHLORIDE LEVEL 107 MEQ/L (98-107); CHOLESTEROL LEVEL 165 MG/DL (<200); CHOLESTEROL RISK RATIO 1.755 (<5); GLOMERULAR FILTRATION RATE > 60.0 (>32); GLUCOSE, FASTING 122 MG/DL (70-100); HDL CHOLESTEROL 94 MG/DL (>40); LDL CHOLESTEROL 56 MG/DL (<100); NON-HDL-C 71 MG/DL; POTASSIUM SERUM 4.5 MEQ/L (3.5-5.1); SODIUM LEVEL 141 MEQ/L (136-145); TOTAL 25(OH) VITAMIN D 95.1 NG/ML (30.0-100.0); TOTAL PROTEIN 6.7 GM/DL (6.4-8.2); TRIGLYCERIDES LEVEL 73 MG/DL (<150); VITAMIN B12 LEVEL 909 PG/ML (247-911)
[2020-02-04 17:06] LABS: SSA SJOGRENS A <0.2 AI (0.0-0.9); SSB SJOGRENS B 0.2 AI (0.0-0.9)
== END ==
LOC: M WUC 09:20
PROVIDERS: ATTEND Family Medicine
DX: I25.10 Atherosclerotic heart disease of native coronary artery without angina pectoris (principal); E78.5 Hyperlipidemia, unspecified; I10 Essential (primary) hypertension; R54 Age-related physical debility; F33.9 Major depressive disorder, recurrent, unspecified; R26.9 Unspecified abnormalities of gait and mobility; Z79.899 Other long term (current) drug therapy

== ENCOUNTER → 2020-03-13 | Outpatient (CLI) | payer MEDICARE ==
[~2020-03-13] MED LIST changes: -CALC-362 PO; +CHEW500C2 PO
--- NOTE | 2020-03-13 17:48 | REP ---
INDICATION: R13.10 DYSPHAGIA COMPARISON: None TECHNIQUE: The procedure was performed by GRADY Regan, under the direct supervision of Dr. Stephenson. The procedure was performed with Mckenzie Gold from speech pathology present. 5 ml aliquots of thin, pudding, nectar, and honey thick consistency barium was administered. FINDINGS: Penetration and aspiration was visualized with all consistency barium. The detailed report of this examination will be provided by speech pathology. IMPRESSION: Penetration and aspiration was visualized, a detailed report of this examination will be provided by speech pathology. 2.3 minutes of fluoroscopy time was utilized for this procedure. Some fluoroscopic images are performed with last image hold technology. These images require no additional radiation. <Electronically signed by Ivory Us > 03/13/20 1349 <Electronically signed by Hai Stephenson > 03/13/20 1403
== END ==
LOC: M ST 10:51
PROVIDERS: ATTEND Family Medicine
DX: R13.10 Dysphagia, unspecified (principal)

== ENCOUNTER 2020-06-23 01:41 | Inpatient (IN) | payer MEDICARE ==
[~2020-06-23] VITALS: Ht 162.6 cm; Wt 46.9 kg
[~2020-06-23 01:41] MED LIST changes: +CALC-362 PO; -CHEW500C2 PO
[2020-06-23 02:22] LABS: BASO # 0.1 10^3/uL (0.0-0.2); BASO % 0.3 % (0.0-1.0); HEMOGLOBIN 12.6 g/dl (12.0-15.5); LYMPH # 0.5 10^3/uL (1.5-5.0); LYMPH % 2.9 % (24.0-44.0); MEAN CORPUSCULAR HEMOGLOBIN 28.4 pg (27.0-33.0); MEAN CORPUSCULAR HGB CONC 30.7 g/dl (32.0-36.5); MEAN CORPUSCULAR VOLUME 92.3 fl (80.0-96.0); MONO # 1.3 10^3/uL (0.0-0.8); MONO % 7.8 % (0.0-5.0); NEUTROPHILS # 14.7 10^3/uL (1.5-8.5); NEUTROPHILS % 88.3 % (36.0-66.0); PLATELET COUNT, AUTOMATED 203 10^3/uL (150-450); RED BLOOD COUNT 4.44 10^6/uL (4.00-5.40); WHITE BLOOD COUNT 16.7 10^3/uL (4.0-10.0)
[2020-06-23] MEDS ORDERED: ISOVUE-370 76% 100ML VIAL As Ordered ONE (02:43)
--- NOTE | 2020-06-23 03:36 | REPVR ---
PROCEDURE INFORMATION: Exam: CT Head Without Contrast Exam date and time: 06/23/2020 1:52 AM Age: 84 years old Clinical indication: Injury or trauma; Concussion/head injury; Consciousness not specified; Additional info: Injury, stuckin bed by neck TECHNIQUE: Imaging protocol: Computed tomography of the head without contrast. Radiation optimization: All CT scans at this facility use at least one of these dose optimization techniques: automated exposure control; mA and/or kV adjustment per patient size (includes targeted exams where dose is matched to clinical indication); or iterative reconstruction. COMPARISON: No relevant prior studies available. FINDINGS: Brain: There is mild patchy low attenuation of deep white matter. Upper normal sulci. Cerebral ventricles: There is slight prominence of the central ventricular system. Bones/joints: Unremarkable. No acute fracture. Paranasal sinuses: Right maxillary sinus mucosal thickening. Mastoid air cells: Visualized mastoid air cells are well aerated. Soft tissues: Unremarkable. IMPRESSION: 1. Mild chronic ischemic white matter change and minimal atrophy. 2. Right maxillary sinus disease. 3. Otherwise negative noncontrast head CT. Electronically signed by: Nader Toribio On 06/23/2020 03:35:39 AM
--- NOTE | 2020-06-23 03:40 | REPVR ---
PROCEDURE INFORMATION: Exam: CT Cervical Spine Without Contrast Exam date and time: 06/23/2020 1:52 AM Age: 84 years old Clinical indication: Neck pain; Additional info: Injury, stuck in bed by neck TECHNIQUE: Imaging protocol: Computed tomography images of the cervical spine without contrast. Radiation optimization: All CT scans at this facility use at least one of these dose optimization techniques: automated exposure control; mA and/or kV adjustment per patient size (includes targeted exams where dose is matched to clinical indication); or iterative reconstruction. COMPARISON: CT Neck with contrast 02/25/2017 1:53 PM FINDINGS: Vertebrae: No acute fracture. Normal alignment. C2-C3: The disc is well maintained with no significant spinal or foraminal stenosis. C3-C4: Slight interspace narrowing with slight retrolisthesis and early degenerative change of apophyseal joints with no spinal or foraminal stenosis. C4-C5: Slight interspace narrowing with slight retrolisthesis and early degenerative changes of uncovertebral joints with no significant spinal or foraminal stenosis. C5-C6: Moderate interspace narrowing with minimal posterior osteophytes and early degenerative change of uncovertebral joints. There is low normal size of the neural foramen. C6-C7: Mild interspace narrowing with slight anterolisthesis and bilateral degenerative changes with no spinal or foraminal stenosis. C7-T1: Early degenerative changes of the right apophyseal joints slight anterolisthesis. No spinal or foraminal stenosis. Other bones/joints: Degenerative remodeling of the right mandibular condyle. Soft tissues: Minimal calcified scar is noted in the right apex. Lungs: Lung apices are normal. IMPRESSION: 1. Multilevel degenerative changes with no significant spinal or foraminal stenosis. 2. Otherwise negative CT cervical spine. No acute fracture or subluxation. Electronically signed by: Nader Toribio On 06/23/2020 03:40:46 AM
--- NOTE | 2020-06-23 03:43 | REPVR ---
PROCEDURE INFORMATION: Exam: CT Angiography Neck With Contrast Exam date and time: 06/23/2020 1:52 AM Age: 84 years old Clinical indication: Other: Neck pain; Additional info: Injury, stuck in bed by neck TECHNIQUE: Imaging protocol: Computed tomography angiography of the neck with intravenous contrast. 3D rendering (Not supervised by radiologist): MIP and/or 3D reconstructed images were created by the technologist. Radiation optimization: All CT scans at this facility use at least one of these dose optimization techniques: automated exposure control; mA and/or kV adjustment per patient size (includes targeted exams where dose is matched to clinical indication); or iterative reconstruction. Contrast material: ISO; Contrast volume: 75 ml; Contrast route: INTRAVENOUS (IV); COMPARISON: CT Neck with contrast 02/25/2017 1:53 PM FINDINGS: Right common carotid artery: No stenosis. No dissection or occlusion. Right internal carotid artery: No stenosis of the extracranial segment. No dissection or occlusion. Right external carotid artery: No occlusion or stenosis of the origin. Right vertebral artery: No stenosis. No dissection or occlusion. Left common carotid artery: No stenosis. No dissection or occlusion. Left internal carotid artery: No stenosis of the extracranial segment. No dissection or occlusion. Left external carotid artery: No occlusion or stenosis of the origin. Left vertebral artery: No stenosis. No dissection or occlusion. Other vasculature: Calcified right apical scar. Paranasal sinuses: Right maxillary sinus opacification. Bones/joints: No acute fracture. Soft tissues: Normal. No significant soft tissue swelling. IMPRESSION: 1. The right maxillary sinus disease. 2. Otherwise negative CTA neck. No significant stenosis and no occlusion. REFERENCES: NASCET CRITERIA. The degree of internal carotid artery stenosis is based on NASCET criteria. Normal is no stenosis. Mild is less than 50% stenosis. Moderate is 50-69% stenosis. Severe is 70% to 99% stenosis. Total occlusion is no detectable patent lumen. Electronically signed by: Nader Toribio On 06/23/2020 03:43:46 AM
--- NOTE | 2020-06-23 04:12 | REPVR ---
PROCEDURE INFORMATION: Exam: XR Chest, 1 View Exam date and time: 06/23/2020 4:05 AM Age: 84 years old Clinical indication: Other: Cough TECHNIQUE: Imaging protocol: XR of the chest Views: 1 view. COMPARISON: CR Chest, 1 view 11/12/2019 2:40 AM FINDINGS: Lungs: There are no interval infiltrates. Pleural spaces: Unremarkable. No pleural effusion. No pneumothorax. Heart/Mediastinum: The heart and mediastinum are unchanged. Bones/joints: Unremarkable. Other findings: There is rotation to the left. IMPRESSION: Negative rotated chest without change from 11/12/2019. Electronically signed by: Nader Toribio On 06/23/2020 04:12:21 AM
[2020-06-23] MEDS ORDERED: ACETAMINOPHEN *IV* 1,000 MG in IV 1 EA IV ONE (04:15)
[2020-06-23] MEDS ORDERED: CARB25TA9 PO (05:44)
[2020-06-23 05:56] LABS: APPEARANCE, URINE CLOUDY (CLEAR); BACTERIA, URINE AUTO NEGATIVE (NEGATIVE); BILIRUBIN, URINE AUTO NEGATIVE (NEGATIVE); BLOOD, URINE BLOOD 2+ (NEGATIVE); COLOR, URINE YELLOW (YELLOW); GLUCOSE, URINE (UA) AUTO 1+ mg/dL (NEGATIVE); KETONE, URINE AUTO NEGATIVE (NEGATIVE); LEUKOCYTE ESTERASE, URINE AUTO NEGATIVE (NEGATIVE); MUCUS, URINE SMALL (NEGATIVE); NITRITE, URINE AUTO NEGATIVE (NEGATIVE); PROTEIN, URINE AUTO 1+ mg/dL (NEGATIVE); RBC, URINE AUTO 53 /HPF (0-3); SPECIFIC GRAVITY URINE AUTO 1.059 (1.002-1.035); SQUAMOUS EPITHELIAL CELL UR AU 3 /HPF (0-6); UROBILINOGEN, URINE AUTO 0.2 mg/dL (0.0-2.0); WBC, URINE AUTO 7 /HPF (0-3)
[2020-06-23] MEDS ORDERED: ACETAMINOPHEN TAB 650MG DOSE (2X325MG) PO PRN (06:30)
[2020-06-23] MEDS ORDERED: NS 1,000 ML IV SCH (06:30)
--- NOTE | 2020-06-23 06:57 | HPEPDOC ---
[facility] Medical History & Physical Date of Admission Jun 23, 2020 Date of Service: Jun 23, 2020 Attending Physician: Arnoldo Brito MD History and Physical CHIEF COMPLAINT: Right arm weakness HISTORY OF PRESENT ILLNESS: Patient is an 84-year-old female with a past medical history significant for Parkinson's disease, hypertension, hyperlipidemia who presented to the [facility] emergency department after being found stuck between her bed and the side rail. Patient is a resident of [facility]. The patient herself has difficulty with phonation and therefore the history is difficult to understand. However, the patient states that around 2:00 in the morning she woke up and noticed that her right arm was unable to move. She also noted some weakness in the right side of her leg. She stated that she try to get out of bed and a rolling on her left side and getting stuck between the bed and the side rail. She states she was there until she was found by a nurse. Patient currently states that her right arm and leg. Do not feel as weak anymore. Although overall she does feel weak. Additionally, patient states that she feels like her voice is much weaker as well. At the ER the patient was vitally stable. She received a CT of the head which demonstrated mild chronic ischemic white matter change and mild minimal atrophy as well as right maxillary sinus disease, otherwise negative noncontrast head CT. She has received an neck CTA, was negative for any significant stenosis or occlusion. Her laboratory findings demonstrated a leukocytosis. Patient was otherwise afebrile. Hospitalist service was consulted and the patient was admitted for further evaluation management. PAST MEDICAL HISTORY: 1. Parkinson's disease 2. Hypertension 3. Hyperlipidemia PAST SURGICAL HISTORY: None SOCIAL HISTORY: Patient is a resident of [facility]. At baseline she ambulates with a walker. She denies any IV drug use ever. She denies any smoking or tobacco use. She denies any alcohol use. FAMILY HISTORY: Positive atherosclerotic vascular disease ALLERGIES: Please see below. REVIEW OF SYSTEMS: CONSTITUTIONAL:. Denies fevers, chills denies night sweats. HEENT:. Denies dysphagia, odynophagia. CARDIOVASCULAR: Denies chest pain, palpitations or feelings of heart racing. RESPIRATORY: Denies shortness of breath, cough or wheezing. GASTROINTESTINAL: Denies, nausea, vomiting, diarrhea or constipation. GENITOURINARY: Denies Dysuria, increased frequency, urgency. SKIN:. Denies any rashes or lesions. MUSCULOSKELETAL: Admits to new onset weakness NEUROLOGICAL:. Admits to right arm and leg weakness. Admits to worsening of her speech. PSYCHIATRIC: Denies depression or anxiety. ENDOCRINE: Denies heat intolerance or cold intolerance. Denies diabetes HEMATOLOGIC/LYMPHATIC:. Nice easy bruising or bleeding. denies history of DVT or pulmonary embolism. HOME MEDICATIONS: Please see below. PHYSICAL EXAMINATION: VITAL SIGNS: Temperature is 96.8, pulse 95, respiratory rate 18, blood pressure 149/69, pulse oximetry 94% on room air. GENERAL APPEARANCE: Patient is Awake, alert and oriented. She appears frail. She is lying in bed, leaning to her right. She does not appear to be in any acute distress HEENT: Atraumatic. Normocephalic. Eyes are nonicteric. Trachea is midline. Her head is side bent to the right. Mucous membranes are dry. There is an area of bruising and small abrasion to the left side of her neck consistent with where she was stuck between the bed CARDIOVASCULAR: Normal S1, S2, distant heart sounds regular rate and rhythm. No clicks rubs or murmurs. LUNGS:. Clear breath sounds bilaterally somewhat diminished throughout. Symmetric Chest expansion. No wheezes rhonchi or rales. ABDOMEN: Soft. Nondistended. Nontender. Normoactive bowel sounds. MUSCULOSKELETAL: Decrease strength of the right arm EXTREMITIES:. No edema. Full equal pulses in bilateral upper and lower extremities. NEUROLOGICAL: Cranial nerves are grossly intact. He has some weakness of the right arm compared to left. Her speech is not slurred, however, is somewhat garbled. PSYCHIATRIC: Mood and affect appear appropriate. LABORATORY DATA: See below. IMAGING: PROCEDURE INFORMATION: Exam: CT Angiography Neck With Contrast Exam date and time: 06/23/2020 1:52 AM Age: 84 years old Clinical indication: Other: Neck pain; Additional info: Injury, stuck in bed by neck TECHNIQUE: Imaging protocol: Computed tomography angiography of the neck with intravenous contrast. 3D rendering (Not supervised by radiologist): MIP and/or 3D reconstructed images were created by the technologist. Radiation optimization: All CT scans at this facility use at least one of these dose optimization techniques: automated exposure control; mA and/or kV adjustment per patient size (includes targeted exams where dose is matched to clinical indication); or iterative reconstruction. Contrast material: ISO; Contrast volume: 75 ml; Contrast route: INTRAVENOUS (IV); COMPARISON: CT Neck with contrast 02/25/2017 1:53 PM FINDINGS: Right common carotid artery: No stenosis. No dissection or occlusion. Right internal carotid artery: No stenosis of the extracranial segment. No dissection or occlusion. Right external carotid artery: No occlusion or stenosis of the origin. Right vertebral artery: No stenosis. No dissection or occlusion. Left common carotid artery: No stenosis. No dissection or occlusion. Left internal carotid artery: No stenosis of the extracranial segment. No dissection or occlusion. Left external carotid artery: No occlusion or stenosis of the origin. Left vertebral artery: No stenosis. No dissection or occlusion. Other vasculature: Calcified right apical scar. Paranasal sinuses: Right maxillary sinus opacification. Bones/joints: No acute fracture. Soft tissues: Normal. No significant soft tissue swelling. IMPRESSION: 1. The right maxillary sinus disease. 2. Otherwise negative CTA neck. No significant stenosis and no occlusion. REFERENCES: NASCET CRITERIA. The degree of internal carotid artery stenosis is based on NASCET criteria. Normal is no stenosis. Mild is less than 50% stenosis. Moderate is 50-69% stenosis. Severe is 70% to 99% stenosis. Total occlusion is no detectable patent lumen. PROCEDURE INFORMATION: Exam: CT Head Without Contrast Exam date and time: 06/23/2020 1:52 AM Age: 84 years old Clinical indication: Injury or trauma; Concussion/head injury; Consciousness not specified; Additional info: Injury, stuckin bed by neck TECHNIQUE: Imaging protocol: Computed tomography of the head without contrast. Radiation optimization: All CT scans at this facility use at least one of these dose optimization techniques: automated exposure control; mA and/or kV adjustment per patient size (includes targeted exams where dose is matched to clinical indication); or iterative reconstruction. COMPARISON: No relevant prior studies available. FINDINGS: Brain: There is mild patchy low attenuation of deep white matter. Upper normal sulci. Cerebral ventricles: There is slight prominence of the central ventricular system. Bones/joints: Unremarkable. No acute fracture. Paranasal sinuses: Right maxillary sinus mucosal thickening. Mastoid air cells: Visualized mastoid air cells are well aerated. Soft tissues: Unremarkable. IMPRESSION: 1. Mild chronic ischemic white matter change and minimal atrophy. 2. Right maxillary sinus disease. 3. Otherwise negative noncontrast head CT. Electronically signed by: Nader Toribio On 06/23/2020 03:35:39 AM PROCEDURE INFORMATION: Exam: CT Cervical Spine Without Contrast Exam date and time: 06/23/2020 1:52 AM Age: 84 years old Clinical indication: Neck pain; Additional info: Injury, stuck in bed by neck TECHNIQUE: Imaging protocol: Computed tomography images of the cervical spine without contrast. Radiation optimization: All CT scans at this facility use at least one of these dose optimization techniques: automated exposure control; mA and/or kV adjustment per patient size (includes targeted exams where dose is matched to clinical indication); or iterative reconstruction. COMPARISON: CT Neck with contrast 02/25/2017 1:53 PM FINDINGS: Vertebrae: No acute fracture. Normal alignment. C2-C3: The disc is well maintained with no significant spinal or foraminal stenosis. C3-C4: Slight interspace narrowing with slight retrolisthesis and early degenerative change of apophyseal joints with no spinal or foraminal stenosis. C4-C5: Slight interspace narrowing with slight retrolisthesis and early degenerative changes of uncovertebral joints with no significant spinal or foraminal stenosis. C5-C6: Moderate interspace narrowing with minimal posterior osteophytes and early degenerative change of uncovertebral joints. There is low normal size of the neural foramen. C6-C7: Mild interspace narrowing with slight anterolisthesis and bilateral degenerative changes with no spinal or foraminal stenosis. C7-T1: Early degenerative changes of the right apophyseal joints slight anterolisthesis. No spinal or foraminal stenosis. Other bones/joints: Degenerative remodeling of the right mandibular condyle. Soft tissues: Minimal calcified scar is noted in the right apex. Lungs: Lung apices are normal. IMPRESSION: 1. Multilevel degenerative changes with no significant spinal or foraminal stenosis. 2. Otherwise negative CT cervical spine. No acute fracture or subluxation. Electronically signed by: Nader Toribio On 06/23/2020 03:40:46 AM PROCEDURE INFORMATION: Exam: XR Chest, 1 View Exam date and time: 06/23/2020 4:05 AM Age: 84 years old Clinical indication: Other: Cough TECHNIQUE: Imaging protocol: XR of the chest Views: 1 view. COMPARISON: CR Chest, 1 view 11/12/2019 2:40 AM FINDINGS: Lungs: There are no interval infiltrates. Pleural spaces: Unremarkable. No pleural effusion. No pneumothorax. Heart/Mediastinum: The heart and mediastinum are unchanged. Bones/joints: Unremarkable. Other findings: There is rotation to the left. IMPRESSION: Negative rotated chest without change from 11/12/2019. Electronically signed by: Nader Toribio On 06/23/2020 04:12:21 AM MICROBIOLOGY: Please see below. ASSESSMENT: Patient is a 84-year-old female with a past medical history negative for hypertension, Parkinson's disease, hyperlipidemia, who presented to the [facility] emergency department was found to be, stuck between her bed and the side rail and stated to have right arm and leg weakness. . PLAN: 1. Right arm and leg weakness, possibly secondary to TIA -Patient stated that she woke up around 2 AM with right arm weakness and right leg weakness. She states she was unable to get up and Mignon Agnes overruns her left-sided excepting the bed and the guardrail. He states that she is starting to get movement back and her leg in her arm. Possibly TIA. CT of the head was negative CTA of the neck was negative. -Patient does have a DNR/DNI. Additionally, the patient has a medical treatment form stating no antibiotics and limited interventions. Consider brain MRI, however, they are likely not change much of her overall clinical course. -Will make nothing by mouth for now. Will need speech therapy -Have ordered echocardiogram 2. Leukocytosis -Patient has a leukocytosis. Possible occult infection. Workup has otherwise been negative. Urine is pending. -Patient has medical treatment form stating that she does not want antibiotics. Will therefore not start empiric antibiotics. -Given patients limited medical interventions consider SENIOR MEDICAL BILLING SPECIALIST -Have not drawn blood cultures as patient refuses antibiotics regardless 3. Parkinsons Disease -Patient is currently on Sinemet. Will continue. Patients weakness possibly secondary to this although more likely TIA 4. HTN -Currently normotensive. Will continue home medications 5. DVT prophylaxis -Lovenox Vital Signs Vital Signs Date Time Temp Pulse Resp B/P (MAP) Pulse Ox O2 Delivery O2 Flow Rate FiO2 06/23/20 01:50 96.8 95 18 149/69 (95) 94 Laboratory Data Labs 24H Laboratory Tests 2 06/23/20 02:11: Immature Granulocyte % (Auto) 0.7, Neutrophils (%) (Auto) 88.3H, Lymphocytes (%) (Auto) 2.9L, Monocytes (%) (Auto) 7.8H, Eosinophils (%) (Auto) 0.0, Basophils (%) (Auto) 0.3, Neutrophils # (Auto) 14.7H, Lymphocytes # (Auto) 0.5L, Monocytes # (Auto) 1.3H, Eosinophils # (Auto) 0.0, Basophils # (Auto) 0.1, Nucleated Red Blood Cells % (auto) 0.0, Total Creatine Kinase 327H 06/23/20 02:19: POC Glucose (Misc Panel) 252H, POC Sodium (Misc Panel) 141, POC Potassium (Misc Panel) 4.1, POC Chloride (Misc Panel) 104, POC Total CO2 (Misc Panel) 27.0, POC Blood Urea Nitrogen (Misc Panel 31H, POC Ionized Calcium (Misc Panel) 4.8, POC Creatinine (Misc Panel) 0.7, POC Hematocrit (Misc Panel) 40.0 06/23/20 05:35: Urine Color YELLOW, Urine Appearance CLOUDYH, Urine pH 6.0, Urine Specific [place] 1.059, Urine Protein 1+H, Urine Glucose (Auto)(UA) 1+H, Urine Ketones (Auto) NEGATIVE, Urine Blood 2+H, Urine Nitrite NEGATIVE, Urine Bilirubin NEGATIVE, Urine Urobilinogen 0.2, Urine Leukocyte Esterase (Auto) NEGATIVE, Urine WBC (Auto) 7H, Urine RBC (Auto) 53H, Urine Hyaline Casts (Auto) 0, Urine Bacteria (Auto) NEGATIVE, Urine Squamous Epithelial Cells 3, Urine Mucus (Auto) SMALL, Urine Sperm (Auto) CBC/BMP Laboratory Tests 06/23/20 02:11 Home Medications Scheduled Aspirin (Aspirin EC) 81 Mg Tab, 81 MG PO QHS Brinzolamide/Brimonidine Tart (Simbrinza 1%-0.2% Eye Drops) 1 Yana Yana, 1 DROP OU BID Carbidopa/Levodopa (Carbidopa-Levodopa 25-100 Tab) 1 Each Tablet, 0.5 TAB PO TID Cholecalciferol (Vitamin D3) (Vitamin D3) 125 Mcg Tablet, 125 MCG PO DAILY Ciprofloxacin HCl (Cipro) 250 Mg Tablet, 250 MG PO BID Lisinopril (Lisinopril) 2.5 Mg Tablet, 2.5 MG PO DAILY Metoprolol Tartrate (Metoprolol Tartrate) 25 Mg Tab, 25 MG PO BID Simvastatin (Simvastatin) 20 Mg Tab, 20 MG PO QHS Timolol Maleate (Timolol Maleate) 0.5 % Ora, 1 DROP OU BID Travoprost (Travatan Z) 50 Drop/2.5 Ml Soln, 1 DROP OU QHS Ubidecarenone (Co Q-10) 100 Mg Cap, 100 MG PO DAILY Allergies Coded Allergies: No Known Allergies (Verified , 11/05/16) A-FIB/CHADSVASC A-FIB History Current/History of A-Fib/PAF?: No Attending Note Attending Note Family Medicine Attending Note: I was present on site to supervise Lluvia Ruano D.O. (PGY-3). We discussed the history and exam. I confirmed the khan elements during my [id number] encounter with the patient. We conferred on the assessment and plan; I agree with the note as documented. Although Mrs. Wilhelm is a little difficult to understand, with effort he can communicate clearly with her. She is clear, as noted above, that she wants very limited medical i nterventions and she liked to go back to home ([facility]) as soon as possible. 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
[2020-06-23 08:20] LABS: RSV AMPLIFICATION NEGATIVE (NEGATIVE)
[2020-06-23] MEDS ORDERED: NATU1TAB5 PO (08:29)
[2020-06-23] MEDS ORDERED: LISI2.5T2 PO (08:29)
[2020-06-23] MEDS ORDERED: METOPROLOL TART 25 MG TABLET PO SCH (09:00)
[2020-06-23] MEDS ORDERED: ENOXAPARIN 40MG/0.4ML SYRINGE (J1650 PER 10MG) SC SCH (09:00)
[2020-06-23 11:00] VITALS: BP 152/67
[2020-06-23 12:04] VITALS: BP 148/70
[2020-06-23 12:13] LABS: ABG BASE EXCESS 1.1 (-2.0-2.0); ABG HCO3 23.8 MEQ/L (22.0-26.0); ABG O2 SATURATION 96.1 % (95.0-99.0); ABG PARTIAL PRESSURE CO2 32.2 mmHg (35.0-45.0); ABG STANDARD HCO3 25.4 MEQ/L (22.0-26.0); ABG TOTAL CO2 24.8 MEQ/L (23.0-31.0); ABG pH (ARTERIAL) 7.486 UNITS (7.350-7.450)
[2020-06-23 12:58] VITALS: BP 148/70
[2020-06-23] MEDS ORDERED: PILL CUTTER 1 EACH XX PRN (13:00)
[2020-06-23] MEDS ORDERED: CIPR-250 PO (13:47)
[2020-06-23] MEDS ORDERED: cefTRIAXone SOD 1 GM in D5W MINI-BAG PLUS 50 ML IV SCH (14:00)
--- NOTE | 2020-06-23 14:08 | DS.PDOC ---
Discharge Summary General Date of Admission Jun 23, 2020 at 06:02 Date of Discharge 06/23/20 PATIENT AND HCP/DAUGHTER REFUSED FURTHER MEDICAL EVALUATION, CONSENTED TO ONE DOSE OF IV [id number], BUT INSISTED ON DC HOME W 24/7CARE WHICH FAMILY CAN PROVIDE. Discharge Summary DISCHARGE DIAGNOSES: Mechanical Fall injuring Right Arm at home Mild Rhabdomyolysis Chronic dysphagia and aspiration on pureed diet History of TIA Asymptomatic Bacteruria Suspected Parkinson's Disease HTN Hyperlipidemia Right maxillary sinusitis by imaging DISCHARGE MEDICATIONS: Please see below. ALLERGIES: Please see below. DISCHARGE INSTRUCTIONS: HOSPITAL COURSE: Patient is a 84-year-old female with a past medical history negative for hypertension, Parkinson's disease, hyperlipidemia, who presented to the [facility] emergency department was found to be, stuck between her bed and the side rail and stated to have right arm and leg weakness. According to the HCP/Daughter, patient does not want any further workup and wants to go home. She has 24/7 care at assisted living, and wants to be discharged as soon as possible. Mechanical Fall landing on her right side/ Right arm pain and weakness -pt has a history of TIAs followed by Dr. Anders as outpt and is chronically on ASA, but patient does not want evaluation and refused MRI/MRA brain/MRA carotids, tele,echo, and neurology consultation. -She also refused physical therapy evaluation and can provide 24/7care at home, which her daughter confirmed. Leukocytosis -awaiting urine culture. cxr negative, but patient does not want to stay in the hospital. She agreed to have one dose of antibtioics. -IV ceftriaxone x 1 dose or possible uti. Asymptomatic Bacteriuria -awaiting urine culture. History of TIA -on ASA -refuses further workup Chronic Dysphagia -on pureed diet -refused reopeat swallow evaluation Parkinsons Disease -Patient is currently on Sinemet. Will continue. Patients weakness possibly secondary to this although more likely TIA . -pt refused further workup including neurology consultation. HTN -Currently normotensive. Will continue home medications Disposition: pt insists on dc home and refuses further evaluation and inpatient management. PHYSICAL EXAMINATION ON DISCHARGE: VITAL SIGNS: Please see below. GEN: cachectic mild distress no use of acc resp mm difficult to understand HEENT: face symmetric no drooling dry mm Atraumatic. Normocephalic. Eyes are nonicteric. Trachea is midline. Her head is side bent to the right. left neck ecchymoses and small laceration w/o induration or crepitus CARDIOVASCULAR: RRR S1, S2 LUNGS:CTAB AEBE ABDOMEN: Soft. Nondistended. Nontender. Normoactive bowel sounds. MUSCULOSKELETAL: Decrease strength of the right arm EXTREMITIES:. No edema. Full equal pulses in bilateral upper and lower extremities. NEUROLOGICAL: Cranial nerves are grossly intact. He has some weakness of the right arm compared to left. Her speech is not slurred, however, is somewhat garbled. LABORATORY DATA: See below. IMAGING: PROCEDURE INFORMATION: Exam: CT Angiography Neck With Contrast Exam date and time: 06/23/2020 1:52 AM Age: 84 years old Clinical indication: Other: Neck pain; Additional info: Injury, stuck in bed by neck TECHNIQUE: Imaging protocol: Computed tomography angiography of the neck with intravenous contrast. 3D rendering (Not supervised by radiologist): MIP and/or 3D reconstructed images were created by the technologist. Radiation optimization: All CT scans at this facility use at least one of these dose optimization techniques: automated exposure control; mA and/or kV adjustment per patient size (includes targeted exams where dose is matched to clinical indication); or iterative reconstruction. Contrast material: ISO; Contrast volume: 75 ml; Contrast route: INTRAVENOUS (IV); COMPARISON: CT Neck with contrast 02/25/2017 1:53 PM FINDINGS: Right common carotid artery: No stenosis. No dissection or occlusion. Right internal carotid artery: No stenosis of the extracranial segment. No dissection or occlusion. Right external carotid artery: No occlusion or stenosis of the origin. Right vertebral artery: No stenosis. No dissection or occlusion. Left common carotid artery: No stenosis. No dissection or occlusion. Left internal carotid artery: No stenosis of the extracranial segment. No dissection or occlusion. Left external carotid artery: No occlusion or stenosis of the origin. Left vertebral artery: No stenosis. No dissection or occlusion. Other vasculature: Calcified right apical scar. Paranasal sinuses: Right maxillary sinus opacification. Bones/joints: No acute fracture. Soft tissues: Normal. No significant soft tissue swelling. IMPRESSION: 1. The right maxillary sinus disease. 2. Otherwise negative CTA neck. No significant stenosis and no occlusion. REFERENCES: NASCET CRITERIA. The degree of internal carotid artery stenosis is based on NASCET criteria. Normal is no stenosis. Mild is less than 50% stenosis. Moderate is 50-69% stenosis. Severe is 70% to 99% stenosis. Total occlusion is no detectable patent lumen. PROCEDURE INFORMATION: Exam: CT Head Without Contrast Exam date and time: 06/23/2020 1:52 AM Age: 84 years old Clinical indication: Injury or trauma; Concussion/head injury; Consciousness not specified; Additional info: Injury, stuckin bed by neck TECHNIQUE: Imaging protocol: Computed tomography of the head without contrast. Radiation optimization: All CT scans at this facility use at least one of these dose optimization techniques: automated exposure control; mA and/or kV adjustment per patient size (includes targeted exams where dose is matched to clinical indication); or iterative reconstruction. COMPARISON: No relevant prior studies available. FINDINGS: Brain: There is mild patchy low attenuation of deep white matter. Upper normal sulci. Cerebral ventricles: There is slight prominence of the central ventricular system. Bones/joints: Unremarkable. No acute fracture. Paranasal sinuses: Right maxillary sinus mucosal thickening. Mastoid air cells: Visualized mastoid air cells are well aerated. Soft tissues: Unremarkable. IMPRESSION: 1. Mild chronic ischemic white matter change and minimal atrophy. 2. Right maxillary sinus disease. 3. Otherwise negative noncontrast head CT. Electronically signed by: Nader Toribio On 06/23/2020 03:35:39 AM PROCEDURE INFORMATION: Exam: CT Cervical Spine Without Contrast Exam date and time: 06/23/2020 1:52 AM Age: 84 years old Clinical indication: Neck pain; Additional info: Injury, stuck in bed by neck TECHNIQUE: Imaging protocol: Computed tomography images of the cervical spine without contrast. Radiation optimization: All CT scans at this facility use at least one of these dose optimization techniques: automated exposure control; mA and/or kV adjustment per patient size (includes targeted exams where dose is matched to clinical indication); or iterative reconstruction. COMPARISON: CT Neck with contrast 02/25/2017 1:53 PM FINDINGS: Vertebrae: No acute fracture. Normal alignment. C2-C3: The disc is well maintained with no significant spinal or foraminal stenosis. C3-C4: Slight interspace narrowing with slight retrolisthesis and early degenerative change of apophyseal joints with no spinal or foraminal stenosis. C4-C5: Slight interspace narrowing with slight retrolisthesis and early degenerative changes of uncovertebral joints with no significant spinal or foraminal stenosis. C5-C6: Moderate interspace narrowing with minimal posterior osteophytes and early degenerative change of uncovertebral joints. There is low normal size of the neural foramen. C6-C7: Mild interspace narrowing with slight anterolisthesis and bilateral degenerative changes with no spinal or foraminal stenosis. C7-T1: Early degenerative changes of the right apophyseal joints slight anterolisthesis. No spinal or foraminal stenosis. Other bones/joints: Degenerative remodeling of the right mandibular condyle. Soft tissues: Minimal calcified scar is noted in the right apex. Lungs: Lung apices are normal. IMPRESSION: 1. Multilevel degenerative changes with no significant spinal or foraminal stenosis. 2. Otherwise negative CT cervical spine. No acute fracture or subluxation. Electronically signed by: Nader Toribio On 06/23/2020 03:40:46 AM PROCEDURE INFORMATION: Exam: XR Chest, 1 View Exam date and time: 06/23/2020 4:05 AM Age: 84 years old Clinical indication: Other: Cough TECHNIQUE: Imaging protocol: XR of the chest Views: 1 view. COMPARISON: CR Chest, 1 view 11/12/2019 2:40 AM FINDINGS: Lungs: There are no interval infiltrates. Pleural spaces: Unremarkable. No pleural effusion. No pneumothorax. Heart/Mediastinum: The heart and mediastinum are unchanged. Bones/joints: Unremarkable. Other findings: There is rotation to the left. IMPRESSION: Negative rotated chest without change from 11/12/2019. Electronically signed by: Nader Toribio On 06/23/2020 04:12:21 AM MICROBIOLOGY: Please see below. Vital Signs/I&Os Vital Signs Date Time Temp Pulse Resp B/P (MAP) Pulse Ox O2 Delivery O2 Flow Rate FiO2 06/23/20 12:58 99 148/70 06/23/20 12:04 98.8 20 96 Room Air I&O- Last 24 Hours up to 6 AM 06/23/20 06:00 Intake Total 100 ml Balance 100 ml Laboratory Data Labs 24H Laboratory Tests 2 06/23/20 02:11: Immature Granulocyte % (Auto) 0.7, Neutrophils (%) (Auto) 88.3H, Lymphocytes (%) (Auto) 2.9L, Monocytes (%) (Auto) 7.8H, Eosinophils (%) (Auto) 0.0, Basophils ( %) (Auto) 0.3, Neutrophils # (Auto) 14.7H, Lymphocytes # (Auto) 0.5L, Monocytes # (Auto) 1.3H, Eosinophils # (Auto) 0.0, Basophils # (Auto) 0.1, Nucleated Red Blood Cells % (auto) 0.0, Total Creatine Kinase 327H 06/23/20 02:19: POC Glucose (Misc Panel) 252H, POC Sodium (Misc Panel) 141, POC Potassium (Misc Panel) 4.1, POC Chloride (Misc Panel) 104, POC Total CO2 (Misc Panel) 27.0, POC Blood Urea Nitrogen (Misc Panel 31H, POC Ionized Calcium (Misc Panel) 4.8, POC Creatinine (Misc Panel) 0.7, POC Hematocrit (Misc Panel) 40.0 06/23/20 05:35: Urine Color YELLOW, Urine Appearance CLOUDYH, Urine pH 6.0, Urine Specific [place] 1.059, Urine Protein 1+H, Urine Glucose (Auto)(UA) 1+H, Urine Ketones (Auto) NEGATIVE, Urine Blood 2+H, Urine Nitrite NEGATIVE, Urine Bilirubin NEGATIVE, Urine Urobilinogen 0.2, Urine Leukocyte Esterase (Auto) NEGATIVE, Urine WBC (Auto) 7H, Urine RBC (Auto) 53H, Urine Hyaline Casts (Auto) 0, Urine Bacteria (Auto) NEGATIVE, Urine Squamous Epithelial Cells 3, Urine Mucus (Auto) SMALL, Urine Sperm (Auto) 06/23/20 07:37: Coronavirus (COVID-19)(PCR) NEGATIVE, Influenza Type A (RT-PCR) NEGATIVE, Influenza Type B (RT-PCR) NEGATIVE, Respiratory Syncytial Virus (PCR) NEGATIVE 06/23/20 12:01: Blood Gas Bicarbonate Standard 25.4, Arterial Blood pH 7.486H, Arterial Blood Partial Pressure CO2 32.2L, Arterial Blood Partial Pressure O2 76.0, Arterial Blood Total CO2 24.8, Arterial Blood HCO3 23.8, Arterial Blood Base Excess 1.1, Arterial Blood Oxygen Saturation 96.1 CBC/BMP Laboratory Tests 06/23/20 02:11 Discharge Medications Scheduled Aspirin (Aspirin EC) 81 Mg Tab, 81 MG PO QHS, (Reported) Brinzolamide/Brimonidine Tart (Simbrinza 1%-0.2% Eye Drops) 1 Yana Yana, 1 DROP OU BID, (Reported) Carbidopa/Levodopa (Carbidopa-Levodopa 25-100 Tab) 1 Each Tablet, 0.5 TAB PO TID, (Reported) Cholecalciferol (Vitamin D3) (Vitamin D3) 125 Mcg Tablet, 125 MCG PO DAILY, (Reported) Ciprofloxacin HCl (Cipro) 250 Mg Tablet, 250 MG PO BID Lisinopril (Lisinopril) 2.5 Mg Tablet, 2.5 MG PO DAILY, (Reported) Metoprolol Tartrate (Metoprolol Tartrate) 25 Mg Tab, 25 MG PO BID, (Reported) Simvastatin (Simvastatin) 20 Mg Tab, 20 MG PO QHS, (Reported) Timolol Maleate (Timolol Maleate) 0.5 % Ora, 1 DROP OU BID, (Reported) Travoprost (Travatan Z) 50 Drop/2.5 Ml Soln, 1 DROP OU QHS, (Reported) Ubidecarenone (Co Q-10) 100 Mg Cap, 100 MG PO DAILY, (Reported) Allergies Coded Allergies: No Known Allergies (Verified , 11/05/16) ASHLI OCONNOR MD Jun 23, 2020 14:07
[2020-06-23 14:53] LABS: C REACTIVE PROTEIN QUANTITATIV 6.87 MG/DL (0.00-0.30)
[2020-06-23] MEDS ORDERED: SINEMET 25-100 MG TAB PO SCH (16:00)
[2020-06-23 16:03] VITALS: BP 166/78
[2020-06-23] MEDS ORDERED: BRINZOLAMIDE 1 % OPHTH SUSP (AZOPT) 10ML OU SCH (21:00)
[2020-06-23] MEDS ORDERED: LATANOPROST 0.005% OPHTH SOLN 2.5 ML OU SCH (21:00)
[2020-06-23] MEDS ORDERED: SIMVASTATIN 20 MG TAB PO SCH (21:00)
[2020-06-23] MEDS ORDERED: TIMOLOL MALEATE 0.5% OPHTH SOLN 5 ML OU SCH (21:00)
[2020-06-23] MEDS ORDERED: ASPIRIN 81 MG ENTERIC TAB PO SCH (21:00)
[2020-06-23] MEDS ORDERED: BRIMONIDINE 0.15% OPHTH SOLN 5 ML OU SCH (21:00)
[2020-06-24] MEDS ORDERED: LISINOPRIL *2.5 MG* TAB PO SCH (09:00)
== END 2020-06-23 16:34 | disposition home or self-care (01) | DRG 556 ==
LOC: M ED 01:41 → M ED INP 06:02 → M PCU 10:44
PROVIDERS: ADMIT Family Medicine; ATTEND General Practice
DX: M79.621 Pain in right upper arm (principal); M62.82 Rhabdomyolysis; G20 Parkinson's disease; I10 Essential (primary) hypertension; R13.10 Dysphagia, unspecified; R53.1 Weakness; E78.5 Hyperlipidemia, unspecified; D72.829 Elevated white blood cell count, unspecified; Z66 Do not resuscitate; Z79.82 Long term (current) use of aspirin; Z79.899 Other long term (current) drug therapy; Z20.822 Contact with and (suspected) exposure to COVID-19